=== PATIENT | male | born 1975 | race Caucasian/White ===

== ENCOUNTER 2017-10-08 11:13 | Inpatient (IN) ==
--- NOTE | 2017-10-08 11:50 | Emergency Department Note ---
Disposition Clinical Impression: Lacunar infarct, acute, Memory loss Disposition: Admitted As Inpatient Condition: Good Referrals: Salomón Garcia DO [Primary Care Provider] - Forms: ED Satisfaction Letter Time of Disposition: 15:52 General Adult HPI - General Chief complaint: ED Neuro Symptoms/Deficit Stated complaint: memory trouble Time Seen by Provider: 10/08/17 11:18 Source: patient Mode of arrival: ambulatory Limitations: no limitations Nursing Notes Reviewed: Yes Vital Signs Reviewed: Yes - History of Present Illness HPI Narrative: Patient is a 42 year old male that presents to the emergency department with memory loss. Patient states that he woke up with morning around 1000 and was unable to remember all of the events from yesterday. Patient states that he use to be a heavy drinker but has not had anything to drink in a couple of years. Patient states that his symptoms are similar to being "black out drunk". Patient states that he has a history of a TIA a couple of years ago but is unable to articulate what symptoms he had when he was having the TIA. Patient states that he was concerned that his memory loss could be related to having a TIA. Patient states that he has chronic pain from his [facility], [place] and is not having any new pain at this time. Pain Scale: 0 - Related Data Home Medications Medication Instructions Recorded Confirmed Aspirin [Lo-Dose Aspirin EC] 81 mg PO DAILY 02/16/17 03/06/17 HYDROcodone/Acet 10/325 mg [[place] 1 tab PO Q8H PRN 02/16/17 03/06/17 10-325 mg] Lidocaine 1 patch TP DAILY 02/16/17 03/06/17 Losartan Potassium [Cozaar] 50 mg PO DAILY 02/16/17 03/06/17 Metoprolol [Lopressor] 25 mg PO BID 02/16/17 03/06/17 Meloxicam [Meloxicam] 7.5 mg PO DAILY 10/08/17 10/08/17 Allergies Allergy/AdvReac Type Severity Reaction Status Date / Time No Known Allergies Allergy Verified 10/08/17 15:33 All systems ED: reviewed and negative except as stated. Eyes: Denies: vision change Musculoskeletal: Reports: other (Joint pain-chronic ) Neurological: Reports: other (Cannot remember ). Denies: headache, weakness, numbness, paresthesias Past Medical History - Past Medical History Medical history: Reports: other Surgical history: Reports: other Psychiatric history: Reports: anxiety - Social History Smoking Status: Never smoker Smokeless Tobacco Status: No Alcohol use: Reports: none Drug use: Reports: none Physical Exam - General Limitations: no limitations General appearance: alert, in no apparent distress - Head Head exam: atraumatic, normocephalic - Eye Eye exam: Present: normal appearance, EOMI - Neck Neck exam: Present: normal inspection, full ROM, trachea midline - Respiratory Respiratory exam: Present: normal lung sounds bilaterally. Absent: respiratory distress, wheezes - Cardiovascular Cardiovascular exam: Present: regular rate, normal rhythm, normal heart sounds, systolic murmur, +S1, +S2 - Abdominal Exam Abdominal exam: Present: soft, Non-Tender, normal bowel sounds - Neurological Exam Neurological exam: Present: alert, oriented X3, CN II-XII intact - Expanded Neurological Exam Patient oriented to: Present: person, place, time Speech: Present: fluid speech Cranial nerves: EOM function (II, III, IV, ): Normal, facial sensation (V): Normal, facial palsy (VII): Normal, gag reflex (IX): Normal, spinal accessory function (XI): Normal, tongue deviation (XII): Normal Cerebellar function: finger to nose: Normal, heel to vazquez: Normal Motor strength - LUE: 5/5 Motor strength - RUE: 5/5 Motor strength - LLE: 5/5 Motor strength - RLE: 5/5 Upper motor neuron exam: pronator drift: Absent bilaterally Sensory exam upper extremity: light touch: Normal Sensory exam lower extremity: light touch: Normal Coma Scale Eye Opening: Spontaneous Coma Scale Motor Response: Obeys Commands Coma Scale Verbal Response: Oriented Coma Scale Total: 15 - Psychiatric Psychiatric exam: Present: normal affect, normal mood - Skin Skin exam: Present: warm, dry, intact Course Vital Signs Temperature 98.0 F 10/08/17 11:16 Pulse Rate 81 10/08/17 11:16 Respiratory Rate 12 10/08/17 11:16 Blood Pressure 141/100 10/08/17 11:16 O2 Sat by Pulse Oximetry 95 10/08/17 11:16 Temperature 98.0 F 10/08/17 12:26 Pulse Rate 60 10/08/17 14:14 Respiratory Rate 18 10/08/17 14:14 Blood Pressure 152/106 10/08/17 14:14 O2 Sat by Pulse Oximetry 97 10/08/17 14:14 Oxygen Delivery Oxygen Delivery Room Air Medical Decision Making - MDM Narrative Medical decision making narrative: Due to the patient presenting to the with memory loss we will obtain laboratory testing, ct scan and an ekg. due to the patient having memory loss a history of valvular replacement without knowing if he has been on blood thinners we will obtain an MRI. CT scan showed encephalomalacia. MRI was obtained which showed an acute small lacunar infarct measuring 6 x 3 mm. Neurology was consult and and they recommended the patient received aspirin here in the emergency department. Patient will need to be admitted to the hospital for further evaluation and management. I called and spoke with Dr. Reed and she has accepted the patient to their service. The patient will be admitted to the hospital at this time for further evaluation and management. A consult was placed to neurology. - Lab Data Lab results reviewed: Yes I reviewed the patient's lab results. Result diagrams: 10/08/17 11:41 10/08/17 11:41 Lab Results 10/08/17 10/08/17 10/08/17 Range/Units 11:41 11:41 11:41 WBC 7.7 (4.3-11.1) K/mcL RBC 5.21 (4.19-5.50) M/mcL Hgb 15.6 (12.9-16.9) g/dL Hct 45.3 (37.5-50.1) % MCV 86.9 (83.0-100.0) fL MCH 29.9 (28.0-33.3) pg MCHC 34.4 (31.6-35.5) g/dL RDW 13.5 (11.5-14.5) % Plt Count 164 (140-400) K/mcL MPV 10.5 (9.4-12.4) fL Immature Gran % 0.5 (0-4) % Seg Neutrophils % 74.8 % Lymphocytes % 16.3 % Monocytes % 6.8 % Eosinophils % 0.7 % Basophils % 0.9 % Neutrophils # 5.7 (1.6-8.9) K/mcL Lymphocytes # 1.3 (0.6-4.6) K/mcL Monocytes # 0.5 (0.0-1.3) K/mcL Eosinophils # 0.1 (0.0-0.6) K/mcL Basophils # 0.1 (0.0-0.2) K/mcL PT 12.1 (9.4-12.1) Seconds INR 1.1 APTT 32.3 (26.0-36.0) Seconds Sodium 136 (136-145) mEq/L Potassium 3.8 (3.5-5.1) mEq/L Chloride 105 (98-107) mEq/L Carbon Dioxide 27 (23-29) mEq/L BUN 14 (6-20) mg/dL Creatinine 0.95 (0.70-1.30) mg/dL Est GFR ( Amer) > 60 (> 60) Est GFR (Non-Af Amer) > 60 (> 60) BUN/Creatinine Ratio 15 (6-26) Glucose 97 (70-105) mg/dL Calculated Osmolality 282 (280-300) Calcium 9.2 (8.6-10.3) mg/dL Total Bilirubin 1.1 H (0.3-1.0) mg/dL Direct Bilirubin 0.3 H (0.0-0.2) mg/dL Indirect Bilirubin 0.8 (0.0-1.2) mg/dL AST 15 (13-39) Units/L ALT 14 (7-52) Units/L Alkaline Phosphatase 73 (34-104) Units/L Serum Total Protein 6.5 (6.4-8.9) g/dL Albumin 4.2 (3.5-5.7) g/dL Globulin 2.3 L (2.4-3.5) g/dL Albumin/Globulin Ratio 1.8 (1.1-2.2) Urine Color (Yellow) Urine Clarity (Clear) Urine pH (5.0-8.0) pH Units Ur Specific [place] (1.010-1.025) Urine Protein (Neg-Trace) mg/dL Urine Glucose (UA) (Normal) mg/dL Urine Ketones (Negative) mg/dL Urine Blood (Negative) Urine Nitrite (Negative) Urine Bilirubin (Negative) Urine Urobilinogen (Normal) mg/dL Ur Leukocyte Esterase (Negative) Ur Culture Indicated? (NO) Urine Opiates Screen (Rzlvaw=507) ng/mL Ur Barbiturates Screen (Fvihvi=727) ng/mL Ur Phencyclidine Scrn (Cutoff=25) ng/mL Ur Amphetamines Screen (Mdyali=0617) ng/mL U Benzodiazepines Scrn (Wnxovo=927) ng/mL Urine Cocaine Screen (Cutoff= 300) ng/mL U Marijuana (THC) Screen (Cutoff = 50) ng/mL Ur Drug Screen Interp Ethyl Alcohol < 10 (Less than 10) mg/dL 10/08/17 10/08/17 Range/Units 11:47 11:47 WBC (4.3-11.1) K/mcL RBC (4.19-5.50) M/mcL Hgb (12.9-16.9) g/dL Hct (37.5-50.1) % MCV (83.0-100.0) fL MCH (28.0-33.3) pg MCHC (31.6-35.5) g/dL RDW (11.5-14.5) % Plt Count (140-400) K/mcL MPV (9.4-12.4) fL Immature Gran % (0-4) % Seg Neutrophils % % Lymphocytes % % Monocytes % % Eosinophils % % Basophils % % Neutrophils # (1.6-8.9) K/mcL Lymphocytes # (0.6-4.6) K/mcL Monocytes # (0.0-1.3) K/mcL Eosinophils # (0.0-0.6) K/mcL Basophils # (0.0-0.2) K/mcL PT (9.4-12.1) Seconds INR APTT (26.0-36.0) Seconds Sodium (136-145) mEq/L Potassium (3.5-5.1) mEq/L Chloride (98-107) mEq/L Carbon Dioxide (23-29) mEq/L BUN (6-20) mg/dL Creatinine (0.70-1.30) mg/dL Est GFR ( Amer) (> 60) Est GFR (Non-Af Amer) (> 60) BUN/Creatinine Ratio (6-26) Glucose (70-105) mg/dL Calculated Osmolality (280-300) Calcium (8.6-10.3) mg/dL Total Bilirubin (0.3-1.0) mg/dL Direct Bilirubin (0.0-0.2) mg/dL Indirect Bilirubin (0.0-1.2) mg/dL AST (13-39) Units/L ALT (7-52) Units/L Alkaline Phosphatase (34-104) Units/L Serum Total Protein (6.4-8.9) g/dL Albumin (3.5-5.7) g/dL Globulin (2.4-3.5) g/dL Albumin/Globulin Ratio (1.1-2.2) Urine Color Yellow (Yellow) Urine Clarity Clear (Clear) Urine pH 6.5 (5.0-8.0) pH Units Ur Specific [place] 1.012 (1.010-1.025) Urine Protein Negative (Neg-Trace) mg/dL Urine Glucose (UA) Normal (Normal) mg/dL Urine Ketones Negative (Negative) mg/dL Urine Blood Negative (Negative) Urine Nitrite Negative (Negative) Urine Bilirubin Negative (Negative) Urine Urobilinogen Normal (Normal) mg/dL Ur Leukocyte Esterase Negative (Negative) Ur Culture Indicated? NO (NO) Urine Opiates Screen Positive H (Jlezrf=990) ng/mL Ur Barbiturates Screen Negative (Ucnxhh=686) ng/mL Ur Phencyclidine Scrn Negative (Cutoff=25) ng/mL Ur Amphetamines Screen Negative (Fsptzx=0177) ng/mL U Benzodiazepines Scrn Negative (Sgfgzz=891) ng/mL Urine Cocaine Screen Negative (Cutoff= 300) ng/mL U Marijuana (THC) Screen Negative (Cutoff = 50) ng/mL Ur Drug Screen Interp See Below Ethyl Alcohol (Less than 10) mg/dL - Radiology Data Radiology results reviewed: Yes I reviewed the patient's radiology results. Chest X-Ray 10/08/17 11:31 IMPRESSION: Stable chest x-ray with cardiomegaly, postthoracotomy changes and hiatal hernia. No CHF or pneumonia seen. D/ / 10/08/2017 12:13:23 Sruthi Murillo MD / Jessica Gomez Interpreting Provider: Sruthi Murillo MD Head CT 10/08/17 11:32 IMPRESSION: No acute intracranial abnormality. Evidence for a small old infarct in the right frontotemporal region. D/ / Gatito Webb MD / Gatito Webb MD Interpreting Provider: Gatito Webb MD Brain MRI 10/08/17 12:47 IMPRESSION: 1. Acute left cerebellar lacunar infarction measuring 6 x 3 mm. No associated hemorrhage. 2. 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 The findings were sent to the Radiology Results Communication Center at 2:20 pm on 10/08/2017to be communicated to a licensed caregiver. D/ : / 10/08/2017 14:22:17 Dm Ocampo MD / bcarter Interpreting Provider: Dm Ocampo MD - EKG Data EKG #1 EKG attestation: Yes I reviewed and interpreted this EKG. EKG results narrative: ekg shows sinus rhythm at a rate of 69 BPM pr interval 169, qrs duration 96 QTc 395 with a normal axis. No STEMI noted on EKG. This was compared to previous on 04/14/17 which showed sinus rhythm at a rate of 77. NIH Stroke Scale - Level of Consciousness LOC: Alert - LOC Questions LOC Questions: Answers both correctly - LOC Commands LOC Commands: Performs both correctly - Best Gaze Best Gaze: Normal - Visual Visual: No visual loss - Facial Palsy Facial Palsy: Normal - Motor Arms Motor Arm-Left: No drift for 10 seconds Motor Arm-Right: No drift for 10 seconds - Motor Legs Motor Leg-Left: No drift for 5 seconds Motor Leg-Right: No drift for 5 seconds - Limb Ataxia Limb Ataxia: Absent of affected limb too weak to perform exam - Sensory Sensory: Normal - Best Language Best Language: No aphasia - Dysarthria Dysarthria: Normal - Extinction and Inattention Extinction and Inattention: Normal - NIHSS Total Score NIHSS Total Score: 0
[2017-10-08 11:54] LABS: Basophils # 0.1 K/mcL (0.0-0.2); Basophils % 0.9 %; Eosinophils # 0.1 K/mcL (0.0-0.6); Eosinophils % 0.7 %; Hematocrit 45.3 % (37.5-50.1); Hemoglobin 15.6 g/dL (12.9-16.9); Immature Granulocytes % 0.5 % (0-4); Lymphocytes # 1.3 K/mcL (0.6-4.6); Lymphocytes % 16.3 %; Mean Corpuscular HGB Conc 34.4 g/dL (31.6-35.5); Mean Corpuscular Hemoglobin 29.9 pg (28.0-33.3); Mean Corpuscular Volume 86.9 fL (83.0-100.0); Mean Platelet Volume 10.5 fL (9.4-12.4); Monocytes # 0.5 K/mcL (0.0-1.3); Monocytes % 6.8 %; Neutrophils # 5.7 K/mcL (1.6-8.9); Platelet Count 164 K/mcL (140-400); Red Blood Count 5.21 M/mcL (4.19-5.50); Red Cell Distribution Width 13.5 % (11.5-14.5); Segmented Neutrophils % 74.8 %
[2017-10-08 11:57] LABS: Bilirubin,Urine Negative (Negative); Blood,Urine Negative (Negative); Clarity,Urine Clear (Clear); Color,Urine Yellow (Yellow); Glucose,Urine (UA) Normal (Normal); Ketones,Urine Negative (Negative); Leukocyte Esterase,Urine Negative (Negative); Nitrite,Urine Negative (Negative); PH,Urine 6.5 pH Units (5.0-8.0); Protein,Urine Negative (Neg-Trace); Specific Gravity,Urine 1.012 (1.010-1.025); Urobilinogen,Urine Normal (Normal)
[2017-10-08 11:58] LABS: INR 1.1; Prothrombin Time 12.1 Seconds (9.4-12.1)
[2017-10-08 12:00] LABS: Activated Partial Thrombo Time 32.3 Seconds (26.0-36.0)
[2017-10-08 12:13] LABS: Alanine Aminotransferase 14 Units/L (7-52); Albumin 4.2 g/dL (3.5-5.7); Albumin/Globulin Ratio 1.8 (1.1-2.2); Alkaline Phosphatase 73 Units/L (34-104); Aspartate Amino Transferase 15 Units/L (13-39); BUN/Creatinine Ratio 15 (6-26); Bilirubin,Direct 0.3 mg/dL (0.0-0.2); Bilirubin,Indirect 0.8 mg/dL (0.0-1.2); Bilirubin,Total 1.1 mg/dL (0.3-1.0); Blood Urea Nitrogen 14 mg/dL (6-20); Calcium 9.2 mg/dL (8.6-10.3); Carbon Dioxide 27 mEq/L (23-29); Chloride 105 mEq/L (98-107); Ethanol < 10 mg/dL (Less than 10); Globulin 2.3 g/dL (2.4-3.5); Glucose 97 mg/dL (70-105); Osmolality,Calculated 282 (280-300); Potassium 3.8 mEq/L (3.5-5.1); Sodium 136 mEq/L (136-145); Total Protein 6.5 g/dL (6.4-8.9); eGFR For African Americans > 60 (> 60); eGFR For Non-African Americans > 60 (> 60)
--- NOTE | 2017-10-08 12:18 | Emergency Department Note ---
Disposition Clinical Impression: Lacunar infarct, acute, Memory loss Disposition: Admitted As Inpatient Condition: Good General Adult HPI - General Chief complaint: ED Neuro Symptoms/Deficit Stated complaint: memory trouble Time Seen by Provider: 10/08/17 11:18 Source: patient Mode of arrival: ambulatory Limitations: no limitations - History of Present Illness Pain Scale: 0 - Related Data Home Medications Medication Instructions Recorded Confirmed Aspirin [Lo-Dose Aspirin EC] 81 mg PO DAILY 02/16/17 10/08/17 HYDROcodone/Acet 10/325 mg [[place] 1 tab PO Q8H PRN 02/16/17 10/08/17 10-325 mg] Lidocaine 1 patch TP DAILY 02/16/17 10/08/17 Losartan Potassium [Cozaar] 50 mg PO DAILY 02/16/17 10/08/17 Metoprolol [Lopressor] 25 mg PO BID 02/16/17 10/08/17 Meloxicam [Meloxicam] 7.5 mg PO DAILY 10/08/17 10/08/17 Allergies Allergy/AdvReac Type Severity Reaction Status Date / Time No Known Allergies Allergy Verified 10/08/17 15:33 Eyes: Denies: vision change Musculoskeletal: Reports: other (Joint pain-chronic ) Neurological: Reports: other (Cannot remember ). Denies: headache, weakness, numbness, paresthesias Past Medical History - Past Medical History Medical history: Reports: other Surgical history: Reports: other Psychiatric history: Reports: anxiety - Social History Smoking Status: Never smoker Smokeless Tobacco Status: No Alcohol use: Reports: none Drug use: Reports: none Physical Exam - General Limitations: no limitations General appearance: alert, in no apparent distress Course Vital Signs Temperature 98.0 F 10/08/17 11:16 Pulse Rate 81 10/08/17 11:16 Respiratory Rate 12 10/08/17 11:16 Blood Pressure 141/100 10/08/17 11:16 O2 Sat by Pulse Oximetry 95 10/08/17 11:16 Temperature 98.0 F 10/08/17 16:43 Pulse Rate 74 10/08/17 16:43 Respiratory Rate 14 10/08/17 16:43 Blood Pressure 140/99 10/08/17 16:43 O2 Sat by Pulse Oximetry 92 10/08/17 16:43 Oxygen Delivery Oxygen Delivery Room Air Medical Decision Making - Lab Data Result diagrams: 10/08/17 11:41 10/08/17 11:41 Lab Results 10/08/17 10/08/17 10/08/17 Range/Units 11:41 11:41 11:41 WBC 7.7 (4.3-11.1) K/mcL RBC 5.21 (4.19-5.50) M/mcL Hgb 15.6 (12.9-16.9) g/dL Hct 45.3 (37.5-50.1) % MCV 86.9 (83.0-100.0) fL MCH 29.9 (28.0-33.3) pg MCHC 34.4 (31.6-35.5) g/dL RDW 13.5 (11.5-14.5) % Plt Count 164 (140-400) K/mcL MPV 10.5 (9.4-12.4) fL Immature Gran % 0.5 (0-4) % Seg Neutrophils % 74.8 % Lymphocytes % 16.3 % Monocytes % 6.8 % Eosinophils % 0.7 % Basophils % 0.9 % Neutrophils # 5.7 (1.6-8.9) K/mcL Lymphocytes # 1.3 (0.6-4.6) K/mcL Monocytes # 0.5 (0.0-1.3) K/mcL Eosinophils # 0.1 (0.0-0.6) K/mcL Basophils # 0.1 (0.0-0.2) K/mcL PT 12.1 (9.4-12.1) Seconds INR 1.1 APTT 32.3 (26.0-36.0) Seconds Sodium 136 (136-145) mEq/L Potassium 3.8 (3.5-5.1) mEq/L Chloride 105 (98-107) mEq/L Carbon Dioxide 27 (23-29) mEq/L BUN 14 (6-20) mg/dL Creatinine 0.95 (0.70-1.30) mg/dL Est GFR ( Amer) > 60 (> 60) Est GFR (Non-Af Amer) > 60 (> 60) BUN/Creatinine Ratio 15 (6-26) Glucose 97 (70-105) mg/dL Calculated Osmolality 282 (280-300) Calcium 9.2 (8.6-10.3) mg/dL Total Bilirubin 1.1 H (0.3-1.0) mg/dL Direct Bilirubin 0.3 H (0.0-0.2) mg/dL Indirect Bilirubin 0.8 (0.0-1.2) mg/dL AST 15 (13-39) Units/L ALT 14 (7-52) Units/L Alkaline Phosphatase 73 (34-104) Units/L Serum Total Protein 6.5 (6.4-8.9) g/dL Albumin 4.2 (3.5-5.7) g/dL Globulin 2.3 L (2.4-3.5) g/dL Albumin/Globulin Ratio 1.8 (1.1-2.2) Urine Color (Yellow) Urine Clarity (Clear) Urine pH (5.0-8.0) pH Units Ur Specific [place] (1.010-1.025) Urine Protein (Neg-Trace) mg/dL Urine Glucose (UA) (Normal) mg/dL Urine Ketones (Negative) mg/dL Urine Blood (Negative) Urine Nitrite (Negative) Urine Bilirubin (Negative) Urine Urobilinogen (Normal) mg/dL Ur Leukocyte Esterase (Negative) Ur Culture Indicated? (NO) Urine Opiates Screen (Oaywhy=182) ng/mL Ur Barbiturates Screen (Xhsobl=853) ng/mL Ur Phencyclidine Scrn (Cutoff=25) ng/mL Ur Amphetamines Screen (Yeiffh=4376) ng/mL U Benzodiazepines Scrn (Yujwdd=417) ng/mL Urine Cocaine Screen (Cutoff= 300) ng/mL U Marijuana (THC) Screen (Cutoff = 50) ng/mL Ur Drug Screen Interp Ethyl Alcohol < 10 (Less than 10) mg/dL 10/08/17 10/08/17 Range/Units 11:47 11:47 WBC (4.3-11.1) K/mcL RBC (4.19-5.50) M/mcL Hgb (12.9-16.9) g/dL Hct (37.5-50.1) % MCV (83.0-100.0) fL MCH (28.0-33.3) pg MCHC (31.6-35.5) g/dL RDW (11.5-14.5) % Plt Count (140-400) K/mcL MPV (9.4-12.4) fL Immature Gran % (0-4) % Seg Neutrophils % % Lymphocytes % % Monocytes % % Eosinophils % % Basophils % % Neutrophils # (1.6-8.9) K/mcL Lymphocytes # (0.6-4.6) K/mcL Monocytes # (0.0-1.3) K/mcL Eosinophils # (0.0-0.6) K/mcL Basophils # (0.0-0.2) K/mcL PT (9.4-12.1) Seconds INR APTT (26.0-36.0) Seconds Sodium (136-145) mEq/L Potassium (3.5-5.1) mEq/L Chloride (98-107) mEq/L Carbon Dioxide (23-29) mEq/L BUN (6-20) mg/dL Creatinine (0.70-1.30) mg/dL Est GFR ( Amer) (> 60) Est GFR (Non-Af Amer) (> 60) BUN/Creatinine Ratio (6-26) Glucose (70-105) mg/dL Calculated Osmolality (280-300) Calcium (8.6-10.3) mg/dL Total Bilirubin (0.3-1.0) mg/dL Direct Bilirubin (0.0-0.2) mg/dL Indirect Bilirubin (0.0-1.2) mg/dL AST (13-39) Units/L ALT (7-52) Units/L Alkaline Phosphatase (34-104) Units/L Serum Total Protein (6.4-8.9) g/dL Albumin (3.5-5.7) g/dL Globulin (2.4-3.5) g/dL Albumin/Globulin Ratio (1.1-2.2) Urine Color Yellow (Yellow) Urine Clarity Clear (Clear) Urine pH 6.5 (5.0-8.0) pH Units Ur Specific [place] 1.012 (1.010-1.025) Urine Protein Negative (Neg-Trace) mg/dL Urine Glucose (UA) Normal (Normal) mg/dL Urine Ketones Negative (Negative) mg/dL Urine Blood Negative (Negative) Urine Nitrite Negative (Negative) Urine Bilirubin Negative (Negative) Urine Urobilinogen Normal (Normal) mg/dL Ur Leukocyte Esterase Negative (Negative) Ur Culture Indicated? NO (NO) Urine Opiates Screen Positive H (Btvzwk=636) ng/mL Ur Barbiturates Screen Negative (Wnxouw=215) ng/mL Ur Phencyclidine Scrn Negative (Cutoff=25) ng/mL Ur Amphetamines Screen Negative (Dpaiia=1263) ng/mL U Benzodiazepines Scrn Negative (Vxwnau=362) ng/mL Urine Cocaine Screen Negative (Cutoff= 300) ng/mL U Marijuana (THC) Screen Negative (Cutoff = 50) ng/mL Ur Drug Screen Interp See Below Ethyl Alcohol (Less than 10) mg/dL Attestation Statement - Attestation Attestation: I examined this patient and my medical decision-making was reviewed with the Resident Physician. I agree with the documented findings, disposition and treatment plan as described except to the extent set forth below. Patient presents to the ED with chief complaint of memory loss. Patient states everything from yesterday is fuzzy. He knows he went to his friend's house complaint severe grams with his friend's kids. He does not remember any details. He states he remembers everything from waking up today until this point. He remembers everything before yesterday. Denies any headache. Denies any other neurologic symptoms. On examination he is awake alert and oriented 3. NIH 0. Plan. CT head basic labs cardiac workup. Patient with acute lacunar infarct on MRI. Discussed with neurology who recommends admission for further workup. Only recommends aspirin at this time. Chest X-Ray 10/08/17 11:31 IMPRESSION: Stable chest x-ray with cardiomegaly, postthoracotomy changes and hiatal hernia. No CHF or pneumonia seen. D/ / 10/08/2017 12:13:23 Sruthi Murillo MD / Jessica Gomez Interpreting Provider: Sruthi Murillo MD Head CT 10/08/17 11:32 IMPRESSION: No acute intracranial abnormality. Evidence for a small old infarct in the right frontotemporal region. D/ / Gatito Webb MD / Gatito Webb MD Interpreting Provider: Gatito Webb MD Brain MRI 10/08/17 12:47 IMPRESSION: 1. Acute left cerebellar lacunar infarction measuring 6 x 3 mm. No associated hemorrhage. 2. 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 The findings were sent to the Radiology Results Communication Center at 2:20 pm on 10/08/2017to be communicated to a licensed caregiver. D/ / 10/08/2017 14:22:17 Dm Ocampo MD / chen Interpreting Provider: Dm Ocampo MD
[2017-10-08] MEDS ORDERED: 0.9 % Sodium Chloride 1,000 ML IVC ONE (12:51)
[2017-10-08 13:09] LABS: Amphetamine Screen,Urine Negative ng/mL (Cutoff=1000); Barbiturate Screen,Urine Negative ng/mL (Cutoff=200); Benzodiazepines Screen,Urine Negative ng/mL (Cutoff=200); Cannabinoid Screen,Urine Negative ng/mL (Cutoff = 50); Cocaine Screen,Urine Negative ng/mL (Cutoff= 300); Opiate Screen,Urine Positive ng/mL (Cutoff=300); Phencyclidine Screen,Urine Negative ng/mL (Cutoff=25)
[2017-10-08] MEDS ORDERED: Aspirin 325 MG TABLET PO ONE (15:12)
[2017-10-08] MEDS ORDERED: Naloxone 0.4 MG/ML INJ IVP PRN (16:36)
--- NOTE | 2017-10-08 16:39 | Internal Med History&Physical ---
Date of Encounter: 10/08/17 Time of Encounter: 17:07 Internal Medicine - H&P: HPI Chief complaint: Memory loss Admitted From: Home Plans for Post Hospital Care: Home History of present illness: Mr. 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 He reports being in his usual state of health till early this morning, when he woke up and could not remember his entire day events from yesterday, he denies prior hx of memory problems He denies speech deficits, motor deficits, numbness, facial droop. He denies any urinary, GI or chest symptoms The patient reports he was on Xarelto till 2 months ago when it was discontinued by his physician. He is not on any blood thinners at home and takes baby ASA occasionally. At time of review, he was able to remember some parts of his day from yesterday' s events he has never smoked, denied alcohol use, denies illicit drug use He has no drug allergies Work up in the ER showed normal CBC and Chem, acute lacunar cerebellar infarct. Utox positive for opiates-prescribed Brain MRI also shows Right frontal prcular encephalomalcia and glisos compatible with prior infarction or injury Past Med Surg Social Fam HX - Past Medical History Medical history: other (miriam gomes) Additional medical history: balta myles Psychiatric history: anxiety - Past Surgical History Surgical History: other Additional surgical history: foot surgery, eye correction x5, B knee scopes, bhavani fundoplication, - Social History Smoking Status: Never smoker Smokeless Tobacco Status: No Alcohol use: none Drug use: none Internal Medicine - H&P: Meds Aspirin [Lo-Dose Aspirin EC] 81 mg PO DAILY 02/16/17 [History] HYDROcodone/Acet 10/325 mg [[place] 10-325 mg] 1 tab PO Q8H PRN 02/16/17 [History] Lidocaine 1 patch TP DAILY 02/16/17 [History] Losartan Potassium [Cozaar] 50 mg PO DAILY 02/16/17 [History] Metoprolol [Lopressor] 25 mg PO BID 02/16/17 [History] Meloxicam [Meloxicam] 7.5 mg PO DAILY 10/08/17 [History] 3 Allergy/AdvReac Type Severity Reaction Status Date / Time No Known Allergies Allergy Verified 10/08/17 15:33 All Systems PM: A 10-system review of systems was performed and is negative for pertinent findings except as documented above in the HPI. - Constitutional Constitutional: as per HPI - EENT Eyes: as per HPI Ears: as per HPI Nose, mouth and throat: as per HPI - Cardiovascular Cardiovascular ROS IM: as per HPI - Respiratory Respiratory: as per HPI - Gastrointestinal Gastrointestinal: as per HPI - Musculoskeletal Musculoskeletal ROS IM: as per HPI - Integumentary Integumentary IM: as per HPI - Neurological Neurological ROS: as per HPI - Hematologic/Lymphatic Hematologic/Lymphatic: as per HPI - Constitutional Vitals: Temp Pulse Resp BP Pulse Ox 98.0 F 60 18 173/116 97 10/08/17 12:26 10/08/17 14:14 10/08/17 16:14 10/08/17 16:14 10/08/17 14:14 - Head Head exam: Present: atraumatic, normocephalic - Eye Eye exam: Present: PERRL, conjuntiva pink, sclera anicteric Pupils: Present: PERRL - Neck Neck exam general surgery: Present: supple, trachea midline. Absent: lymphadenopathy - Respiratory Respiratory exam: Present: CTAB. Absent: accessory muscle use, rales, rhonchi, wheezes - Cardiovascular Cardiovascular exam: Present: RRR, +S1, +S2, systolic murmur. Absent: diastolic murmur, gallop, rubs - GI/Abdominal GI/Abdominal exam: Present: normal bowel sounds, soft, no peritoneal signs. Absent: distended, tenderness - Extremities Exam Extremities exam: Present: warm, radial pulses palpable and symmetrical. Absent : calf tenderness, cyanotic, pedal edema - Neurological Exam Neurological exam: Present: CN II-XII intact, oriented X3, no focal deficits. Absent: pronater drift, facial droop, speech deficit - Skin Skin exam: Present: dry, intact Internal Med - H&P Results - Labs CBC & Chem 7: 10/08/17 11:41 10/08/17 11:41 - Assessment and plan (1) Cerebellar infarct Current Visit: Yes Status: Acute Assessment and plan: Continue tele NO speech, motor or sensory deficits Patient with acute memory loss, now improving Continue ASA Add lipitor Obtain ECHO and Carotid doppler Check lipid panel a.m Neuro consult-called by ED No indication for spec/occupational/physical therapy, patient s ambulatory and has no deficits (2) History of heart valve repair Current Visit: Yes Status: Chronic Assessment and plan: Hx of MV, AV and aortic root repair, not on anticoagulation Continue ASA Follow ECHO (3) Memory loss Current Visit: Yes Status: Acute Assessment and plan: as above (4) Umer-Danlos syndrome Current Visit: Yes Status: Chronic Assessment and plan: continue home meds and pain control (5) Facet arthritis of lumbar region Current Visit: Yes Status: Chronic Assessment and plan: continue home meds - Time Spent With Patient Total time spent is greater than 50% in coordination of care (as documented) at patient's floor/unit and/or counseling patient:
[2017-10-08] MEDS: *HR* HYDROcodone/Acet 10/325 mg TABLET PO PRN (21:00)
[2017-10-09 04:39] LABS: Basophils # 0.1 K/mcL (0.0-0.2); Basophils % 0.9 %; Eosinophils # 0.1 K/mcL (0.0-0.6); Eosinophils % 1.6 %; Hematocrit 45.7 % (37.5-50.1); Hemoglobin 15.5 g/dL (12.9-16.9); Immature Granulocytes % 0.6 % (0-4); Lymphocytes # 2.6 K/mcL (0.6-4.6); Lymphocytes % 30.5 %; Mean Corpuscular HGB Conc 33.9 g/dL (31.6-35.5); Mean Corpuscular Hemoglobin 30.5 pg (28.0-33.3); Mean Corpuscular Volume 89.8 fL (83.0-100.0); Mean Platelet Volume 11.3 fL (9.4-12.4); Monocytes # 0.7 K/mcL (0.0-1.3); Monocytes % 7.7 %; Platelet Count 160 K/mcL (140-400); Red Blood Count 5.09 M/mcL (4.19-5.50); Red Cell Distribution Width 13.6 % (11.5-14.5); Segmented Neutrophils % 58.7 %
[2017-10-09 04:58] LABS: Alanine Aminotransferase 12 Units/L (7-52); Albumin 3.8 g/dL (3.5-5.7); Alkaline Phosphatase 73 Units/L (34-104); Aspartate Amino Transferase 13 Units/L (13-39); BUN/Creatinine Ratio 18 (6-26); Bilirubin,Total 0.6 mg/dL (0.3-1.0); Blood Urea Nitrogen 20 mg/dL (6-20); Carbon Dioxide 28 mEq/L (23-29); Chloride 104 mEq/L (98-107); Globulin 1.9 g/dL (2.4-3.5); Glucose 112 mg/dL (70-105); Osmolality,Calculated 287 (280-300); Potassium 4.2 mEq/L (3.5-5.1); Sodium 137 mEq/L (136-145); Total Protein 5.7 g/dL (6.4-8.9); eGFR For African Americans > 60 (> 60); eGFR For Non-African Americans > 60 (> 60)
[2017-10-09 05:06] LABS: Chol/HDL Ratio 4.4 (0-4.9); Cholesterol 136 mg/dL (< 200); HDL Cholesterol 31 mg/dL (40-59); LDL Cholesterol,Calculated 67 mg/dL (0-99); Triglycerides 190 mg/dL (< 150)
[2017-10-09] MEDS: *HR* HYDROcodone/Acet 10/325 mg TABLET PO PRN (05:32)
[2017-10-09] MEDS ORDERED: *HR* Enoxaparin 40 MG/0.4 ML SYRINGE SQ SCH (06:00)
[2017-10-09] MEDS ORDERED: Aspirin Enteric Coated 81 MG Tablet PO SCH (09:00)
[2017-10-09 11:03] VITALS: BP 151/99
--- NOTE | 2017-10-09 11:22 | Neurology - Consult Note ---
<Dougie Mendoza - Last Filed: 10/09/17 11:16> Date of Encounter: 10/09/17 Time of Encounter: 11:16 Assessment and Plan (1) Cerebellar infarct Current Visit: Yes Status: Acute Head MRI did reveal acute left lacunar infarct of the cerebellum. Patient will need evaluation for cause, including: echocardiogram, carotid US, and lab work for thrombotic tendencies. Ordered testing for factor V Leiden, prothrombin gene mutation, protein C, protein S, antithrombin III, antiphospholipid antibody , homocysteine, B12, folate, TSH, rheumatoid factor. Follow up with outpatient neurology for results and further discussion. History of Present Illness Chief complaint: memory loss HPI: Mr. Chavarria is a 42 year old male with history of Umer-Danlos, mitral and aortic valve repairs. Patient woke up yesterday morning felt as though he cannot remember the previous day's events, and presented with concern for the loss of memory. He does not have a history of memory loss. Patient denied any focal motor or sensory deficits. Does not have history of stroke or TIA. Takes 81 mg aspirin at home. Postoperative Xarelto after varicose vein procedure was discontinued 2 months ago. Patient has regained some of the lost memory, but still feels as though gaps of time Are Missing. Patient continues to deny focal neurologic deficit and is ambulating well. Patient feels as though he is at baseline. Past Med Surg Social Fam HX - Past Medical History Medical history: other Additional medical history: ehler danlos Psychiatric history: anxiety - Past Surgical History Surgical History: other Additional surgical history: foot surgery, eye correction x5, B knee scopes, bhavani fundoplication, - Social History Smoking Status: Never smoker Smokeless Tobacco Status: No Alcohol use: none Drug use: none Medications and Allergies Aspirin [Lo-Dose Aspirin EC] 81 mg PO DAILY 02/16/17 [History] HYDROcodone/Acet 10/325 mg [[place] 10-325 mg] 1 tab PO Q8H PRN 02/16/17 [History] Lidocaine 1 patch TP DAILY 02/16/17 [History] Losartan Potassium [Cozaar] 50 mg PO DAILY 02/16/17 [History] Metoprolol [Lopressor] 25 mg PO BID 02/16/17 [History] Meloxicam [Meloxicam] 7.5 mg PO DAILY 10/08/17 [History] Aspirin Enteric Coated [Aspirin EC] 325 mg PO DAILY #30 tablet. 10/09/17 [Rx] Atorvastatin [Lipitor] 40 mg PO HS #30 tablet 10/09/17 [Rx] Clopidogrel [Plavix] 75 mg PO DAILY #30 tablet 10/09/17 [Rx] 3 Allergy/AdvReac Type Severity Reaction Status Date / Time No Known Allergies Allergy Verified 10/08/17 15:33 All Systems: The remainder of the systems were reviewed and are negative Review of Systems: Recent memory loss. Physical Examination - Vital Signs Vital Signs: Initial Vital Signs Temp Pulse Resp BP Pulse Ox 98.0 F 81 12 141/100 95 10/08/17 11:16 10/08/17 11:16 10/08/17 11:16 10/08/17 11:16 10/08/17 11:16 - Exam Exam: Mental status: Patient is awake, alert and oriented to person, place, and time. Speech is appropriate and fluent. Adequate fund of knowledge. Cranial nerves: CN II-XII grossly intact bilateral, CHRIS, EOM intact, no facial asymmetry. Upper extremity motor: normal strength, bulk and 5/5 strength throughout bilateral deltoid, bicep, tricep, finger extensors and abductors. Lower extremity motor: normal strength, bulk and 5/5 strength throughout bilateral hip flexors, quadriceps, hamstring, plantar flexors and extensors. Sensory: Sensation to light touch and pain intact. Cerebellar: Able to perform finger to nose and rapid alternating movement tests appropriately without evidence of dysmetria or akinesia. No truncal instability. Reflexes: 2+ reflexes throughout bicep, tricep, achilles, patellar. Down going plantar reflex. Gait: Patient is observed walking without instability, gait is somewhat altered due to apparent foot deformities. Results - Laboratory Findings CBC and BMP: 10/09/17 03:29 10/09/17 03:29 Abnormal lab findings: Abnormal lab results Glucose 112 mg/dL (70-105) H 10/09/17 03:29 Direct Bilirubin 0.3 mg/dL (0.0-0.2) H 10/08/17 11:41 Serum Total Protein 5.7 g/dL (6.4-8.9) L 10/09/17 03:29 Globulin 1.9 g/dL (2.4-3.5) L 10/09/17 03:29 Triglycerides 190 mg/dL (< 150) H 10/09/17 03:29 VLDL Cholesterol, Calc 38 mg/dL (< 31) H 10/09/17 03:29 HDL Cholesterol 31 mg/dL (40-59) L 10/09/17 03:29 Urine Opiates Screen Positive ng/mL (Sbcqos=387) H 10/08/17 11:47 Consult Discharge Plan - Plan Referrals: Salomón Garcia DO [Primary Care Provider] - Prescriptions: Aspirin Enteric Coated [Aspirin EC] 325 mg PO DAILY #30 tablet. Atorvastatin [Lipitor] 40 mg PO HS #30 tablet Clopidogrel [Plavix] 75 mg PO DAILY #30 tablet <Alex Ludwig I - Last Filed: 10/09/17 11:41> Date of Encounter: 10/09/17 Assessment and Plan (1) Cerebellar infarct Current Visit: Yes Status: Acute Pt was seen and examined, my medical decision was reviewed with the Resident Physician, I agree with the documented findings, disposition and treatment plas as described except to the extent set forth below This is a 42 years old male with a history of Ehler Danlos syndrome, admitted with the predominantly short-term memory issues sounded more like an amnesia for several hours that resolved spontaneously he was admitted for the workup and during the workup he was found to have a lacunar cerebellar infarct. 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 Motor examination 5/5 all 4 extremities sensory and cerebellar testing is also within normal limits is no evidence of dysmetria or any other abnormalities to be suggestive of cerebellar infarct predominantly he is asymptomatic. Acute left lacunar cerebellar infarct Plan: Following's are my recommendations. Patients with the Umer-Danlos syndrome have an increased risk of vascular complications such as aortic dissection and perforation as far as Cerebral ischemia has only rarely been documented, and they are only rare cases reported I suspect it could be related to it but at the same time because of younger age I would recommend, thrombotic tendency profile For secondary stroke prevention patient should continue daily antiplatelet medication and vascular risk factor modification. Order the following test, *MRI of the brain without contrast. *Antiplatelet medication, aspirin 325 mg daily. *Consult physical therapy/ rehabilitation * To reduce the risk of future ischemic stroke patient need continued vascular risk modification, following's are the recommended guidelines LDL goal less than 70 MG per deciliter Smoking cessation reinforced. Diabetes management Blood pressure control should achieve less than 130/80 mmHg BP management should aim to achieve long-term control in a reasonable amount of time. weight management goal for BMI is 18.5 -24.9 Kg/m2 Alcohol : No more than 2 drinks per day for men Patient to continue to follow-up with his primary care physician for continued outpatient risk factor management and modification. If echo and carotid's are negative patient could be discharged to home with follow-up with neurology in 3-4 weeks as thrombotic tendency profile may take several weeks to be back Alex Ludwig MD History of Present Illness HPI: Mr. Chavarria is a 42 year old male All Systems: The remainder of the systems were reviewed and are negative Physical Examination - Vital Signs Vital Signs: Initial Vital Signs Temp Pulse Resp BP Pulse Ox 98.0 F 81 12 141/100 95 10/08/17 11:16 10/08/17 11:16 10/08/17 11:16 10/08/17 11:16 10/08/17 11:16 Results - Laboratory Findings CBC and BMP: 10/09/17 03:29 10/09/17 03:29 Abnormal lab findings: Abnormal lab results Glucose 112 mg/dL (70-105) H 10/09/17 03:29 Direct Bilirubin 0.3 mg/dL (0.0-0.2) H 10/08/17 11:41 Serum Total Protein 5.7 g/dL (6.4-8.9) L 10/09/17 03:29 Globulin 1.9 g/dL (2.4-3.5) L 10/09/17 03:29 Triglycerides 190 mg/dL (< 150) H 10/09/17 03:29 VLDL Cholesterol, Calc 38 mg/dL (< 31) H 10/09/17 03:29 HDL Cholesterol 31 mg/dL (40-59) L 10/09/17 03:29 Urine Opiates Screen Positive ng/mL (Wkylez=058) H 10/08/17 11:47
[2017-10-09 12:04] LABS: Prothrombin Time 11.3 Seconds (9.4-12.1)
[2017-10-09 12:45] LABS: Folate 6.5 ng/mL (3.0-16.0); Vitamin B12 204 pg/mL (250-1100)
[2017-10-09 13:27] LABS: Rheumatoid Factor < 10 IU/mL (Less than 14)
--- NOTE | 2017-10-09 13:32 | Discharge Summary ---
<Gatito Ruiz - Last Filed: 10/09/17 16:01> Orders not resulted at time of discharge: Pending orders 10/09/17 11:18 Factor V Leiden Routine Protein C, Functional Routine Protein S, Free Routine Protein S, Functional Routine Prothrombin [id number] Mutation Routine Von Willebrand Factor Ag Routine 10/09/17 11:37 Antithrombin III, Activity Routine Beta-2 Glycoprotein 1 IgG, IgM Routine Cardiolipin IGG & IGM Routine Homocysteine Routine Lupus Anticoagulant Panel Routine Date of Encounter: 10/09/17 Hospital course: Mr. Chavarria is a 42 year old male - Time Spent with Patient Total time spent providing and/or coordinating discharge services: - Discharge Medications Prescriptions: Aspirin Enteric Coated [Aspirin EC] 325 mg PO DAILY #30 tablet. Atorvastatin [Lipitor] 40 mg PO HS #30 tablet Home Medications: HYDROcodone/Acet 10/325 mg [[place] 10-325 mg] 1 tab PO Q8H PRN 02/16/17 [History] Lidocaine 1 patch TP DAILY 02/16/17 [History] Losartan Potassium [Cozaar] 50 mg PO DAILY 02/16/17 [History] Metoprolol [Lopressor] 25 mg PO BID 02/16/17 [History] Meloxicam 7.5 mg PO DAILY 10/08/17 [History] Aspirin Enteric Coated [Aspirin EC] 325 mg PO DAILY #30 tablet. 10/09/17 [Rx] Atorvastatin [Lipitor] 40 mg PO HS #30 tablet 10/09/17 [Rx] Allergies/Adverse Reactions: 3 Allergy/AdvReac Type Severity Reaction Status Date / Time No Known Allergies Allergy Verified 10/08/17 15:33 Date of admission: 10/08/17 16:36 Primary care physician: Salomón Garcia DO - Constitutional Vitals: Temp Pulse Resp BP Pulse Ox 97.9 F 64 18 151/99 97 10/09/17 11:02 10/09/17 11:02 10/09/17 11:02 10/09/17 11:02 10/09/17 11:02 - Patient Status Disposition: Home, Self-Care Condition: Good - Discharge Instructions Instructions: Aspirin (By mouth), Atorvastatin (By mouth), Clopidogrel (By mouth), Ischemic Stroke (DC) Follow Up With: Salomón Garcia DO [Primary Care Provider] - 10/15/17 3:15 pm Alex Ludwig MD [Partnered Physician] - 10/13/17 9:45 am <Kostas Dobson - Last Filed: 10/09/17 17:21> - NOTES TO OUTPATIENT PROVIDER Notes to Outpatient Provider: Mr. Chavarria presented to the ED on 10/08 with memory loss and headache and CT showed evidence for small old infarct in the right frontotemporal region. A follow up MRI showed acute L cerebellar lacunar infarct without hemorrhage. A R frontal opercular encephalomalacia and gliosis compatible with prior infarction or injury were also found. An echo showed an LVEF of 60-65% and no patent foramen ovale. Today, he complains of headache that is not atypical for him. Carotid doppler U/S results, hypercoagulability studies pending. Discharge on ASA, Plavix, and Atrovastatin. There is no need for PT/OT as per the physical exam findings. Follow up with residency clinic. Continue muscle strengthening exercises and activity. Try to incorperate more vegetables into diet as tolerable. Orders not resulted at time of discharge: Pending orders 10/09/17 11:18 Factor V Leiden Routine Protein C, Functional Routine Protein S, Free Routine Protein S, Functional Routine Prothrombin [id number] Mutation Routine Von Willebrand Factor Ag Routine 10/09/17 11:37 Antithrombin III, Activity Routine Beta-2 Glycoprotein 1 IgG, IgM Routine Cardiolipin IGG & IGM Routine Folate Routine Homocysteine Routine Lupus Anticoagulant Panel Routine Rheumatoid Factor Routine Vitamin B12 Routine Date of Encounter: 10/09/17 Time of Encounter: 08:30 - Discharge Diagnosis (1) Cerebellar infarct Priority: Primary Status: Acute Comments: Cerebellar lacunar infarction consider hypercoagulation disorder. doubt fat emboli because no recent surgery but could be responsible for old infarct mentioned below. Patient admits memory loss without any exacerbating factors. unlikely atherosclerosis considering lipid panel shows TA (H), VLDL 38 (H), HDL 31 (L) and no prior history of HTN. MRI showed acute L cerebellar lacunar infarct without hemorrhage. A R frontal opercular encephalomalacia and gliosis compatible with prior infarction or injury were also found. An echo showed an LVEF of 60-65% and no patent foramen ovale. CT showed evidence for small old infarct in frontotemporal region. carotid U/S report pending. hypercoagulation panel ordered. Discharge on ASA, clopidogrel, as well as atorvastatin. Patient given enoxaparin while here. (2) Lacunar infarct, acute Priority: Primary Status: Acute Comments: Cerebellar lacunar infarction consider hypercoagulation disorder. doubt fat emboli because no recent surgery but could be responsible for old infarct mentioned below. Patient admits memory loss without any exacerbating factors. unlikely atherosclerosis considering lipid panel shows TA (H), VLDL 38 (H), HDL 31 (L) and no prior history of HTN. MRI showed acute L cerebellar lacunar infarct without hemorrhage. A R frontal opercular encephalomalacia and gliosis compatible with prior infarction or injury were also found. An echo showed an LVEF of 60-65% and no patent foramen ovale. CT showed evidence for small old infarct in frontotemporal region. enoxaparin and ASA given. today the patient's neurologic exam is relatively benign. details in exam section. carotid U/S report pending. hypercoagulation panel pending. Discharge on ASA, clopidogrel, as well as atorvastatin. (3) Memory loss Priority: Secondary Status: Acute Comments: memory loss likely due to cerebellar lacunar infarct as evidenced by MRI. doubt drug/etoh intoxication due to negative screen. doubt delerium from UTI due to negative screen. Patient admits memory loss without any exacerbating factors. He reports waking up and "missing pieces" of the previous evening. MRI showed acute L cerebellar lacunar infarct without hemorrhage. A R frontal opercular encephalomalacia and gliosis compatible with prior infarction or injury were also found. treated with enoxaparin and ASA. discharge on ASA, clopidogrel, atorvastatin. hypercoagulability panel results pending. Hospital course: Mr. Chavarria is a 42 year old male presented to the ED 10/08 with complaint of memory loss and headache. CT showed evidence for small old infarct in frontotemporal region. follow up MRI showed acute L cerebellar lacunar infarct without hemorrhage. A R frontal opercular encephalomalacia and gliosis compatible with prior infarction or injury were also found. An echo showed an LVEF of 60-65% and no patent foramen ovale. carotid U/S report pending. The patient has no concerning signs of acute neurologic deficits today on exam. Discharge on ASA - 325 mg, clopidogrel, atorvastatin. - Time Spent with Patient Total time spent providing and/or coordinating discharge services: Date of admission: 10/08/17 16:36 Primary care physician: Salomón Garcia DO - Constitutional Vitals: Temp Pulse Resp BP Pulse Ox 97.9 F 64 18 151/99 97 10/09/17 11:02 10/09/17 11:02 10/09/17 11:02 10/09/17 11:02 10/09/17 11:02 Exam: PE general: middle aged m no acute distress HEENT: head - symmetric, atraumatic. nontender. heart: RRR, late systolic murmur heard loudest over mitral post. lungs: CTA throughout but slightly distant lung sounds neuro: CN 2-12 intact. strength 5/5 upper and lower Ext save interossii weakness and inability to dorsiflex d/t clubbed feet at . sensation intact upper and lower Ext. 3/4 patellar and brachioradialis reflexes. cerebellar: no pronator drift. finger to nose intact. gait-slightly unstable. failure of heel walk. heel to toe intact but unstable. walking on balls of feet intact. MSK: no pedal edema <ThallapaneniRambabu - Last Filed: 10/09/17 18:05> Orders not resulted at time of discharge: Pending orders 10/09/17 11:18 Factor V Leiden Routine Protein C, Functional Routine Protein S, Free Routine Protein S, Functional Routine Prothrombin [id number] Mutation Routine Von Willebrand Factor Ag Routine 10/09/17 11:37 Antithrombin III, Activity Routine Beta-2 Glycoprotein 1 IgG, IgM Routine Cardiolipin IGG & IGM Routine Homocysteine Routine Lupus Anticoagulant Panel Routine Date of Encounter: 10/09/17 Hospital course: Mr. Chavarria is a 42 year old male - Time Spent with Patient Total time spent providing and/or coordinating discharge services: Date of admission: 10/08/17 16:36 Primary care physician: Salomón Garcia DO - Constitutional Vitals: Temp Pulse Resp BP Pulse Ox 97.9 F 64 18 151/99 97 10/09/17 11:02 10/09/17 11:02 10/09/17 11:02 10/09/17 11:02 10/09/17 11:02 - Attending Attestation I examined this patient and my medical decision-making was reviewed with the Resident Physician Dr. Ruiz. I agree with the documented findings, disposition and treatment plan as described except to the extent set forth below. Mr. Chavarria is a 42 year old male with history of Umer-Danlos, mitral and aortic valve repairs. Patient woke up yesterday morning felt as though he cannot remember the previous day's events, and presented with concern for the loss of memory. He does not have a history of memory loss. Patient denied any focal motor or sensory deficits. Does not have history of stroke or TIA. Takes 81 mg aspirin at home.Pt is alert, awake and O x 3. Denied any CP. He does not have any more memory problems and denied any neuro deficits. His MRI of brain came back as positive for acute left cerebellar infarction. Recommend to take ASA + Plavix and statin. Medically stable to d/c home. Due to his Umer Danlos and recent thrombosis, ordered hyper coag panel to f/u as an out pt.
--- NOTE | 2017-10-09 17:39 | Electrocardiograph Report ---
[facility] Test Date: 2017-10-08 Pat Name: Nate Chavarria Department: 103 Room: 2NE18 Gender: M Global Ceo: TESSIE : 1975 Requested By: Js Isabel Order Number: [id number] Reading MD: Morgan Mireles Measurements Intervals Erwin Rate: 69 P: 3 MT: 169 QRS: 12 QRSD: 96 T: 42 QT: 376 QTc: 395 Interpretive Statements SINUS RHYTHM MODERATE VOLTAGE CRITERIA FOR LVH, CONSIDER NORMAL VARIANT [MEETS CRITERIA IN ONE OF: R(aVL), S(V1), R(V5), R(V5/V6)+S(V1)] Electronically Signed On 10-09-2017 17:37:10 EDT by Morgan Mireles
[2017-10-11 17:50] LABS: APTT (LE Anticoag) 45 sec (32-48); Diluted Russell Viper Venom 35 sec (33-44); PT (LE-Anticoag) 13.5 sec (12.0-15.5)
[2017-10-13 11:25] LABS: FACV Specimen WHOLE BLOOD
[2017-10-13 11:29] LABS: Fac V Leiden R506Q Mut Result NEGATIVE
[2017-10-14 08:29] LABS: Prothrombin G20210A Specimen WHOLE BLOOD
[2017-10-15 07:48] LABS: Prothrombin G20210A Mut Result NEGATIVE
== END 2017-10-09 16:28 | disposition home or self-care (01) | DRG 45 ==
LOC: EMEROO 11:13 → 2NENU 11:13
PROVIDERS: ADMIT Internal Medicine; ATTEND Internal Medicine

== ENCOUNTER 2017-10-21 17:21 | Observation (INO) ==
--- NOTE | 2017-10-21 18:08 | Emergency Department Note ---
Disposition Clinical Impression: Sensory deficit, right Disposition: Still a Patient Referrals: Salomón Garcia DO [Resident] - Forms: ED Satisfaction Letter General Adult HPI - General Chief complaint: ED Neuro Symptoms/Deficit Stated complaint: R side numbness Time Seen by Provider: 10/21/17 17:55 Source: patient Mode of arrival: ambulatory Limitations: no limitations Nursing Notes Reviewed: Yes Vital Signs Reviewed: Yes - History of Present Illness HPI Narrative: Patient is a 42-year-old male that presents the emergency department for numbness in the right hand and arm as well as the right lower extremity. Patient states this began approximately one hour prior to arrival. Patient states that he had a stroke approximately 2 weeks ago and had concern that this could potentially be related to a stroke. Patient states that he is also had a headache that is a bandlike sensation around his head. Patient does state that he has a history of migraines however this headache is different than his other migraines. Denies any sensitivity to light or sound. Patient denies any difficulty with ambulation or upper extremity dexterity. Pain Scale: 6 - Related Data Home Medications Medication Instructions Recorded Confirmed HYDROcodone/Acet 10/325 mg [[place] 1 tab PO Q8H PRN 02/16/17 10/08/17 10-325 mg] Lidocaine 1 patch TP DAILY 02/16/17 10/08/17 Losartan Potassium [Cozaar] 50 mg PO DAILY 02/16/17 10/08/17 Metoprolol [Lopressor] 25 mg PO BID 02/16/17 10/08/17 Meloxicam 7.5 mg PO DAILY 10/08/17 10/08/17 Previous Rx's Medication Instructions Recorded Aspirin Enteric Coated [Aspirin EC] 325 mg PO DAILY #30 tablet. 10/09/17 Atorvastatin [Lipitor] 40 mg PO HS #30 tablet 10/09/17 Allergies Allergy/AdvReac Type Severity Reaction Status Date / Time No Known Allergies Allergy Verified 10/08/17 15:33 All systems ED: reviewed and negative except as stated. Cardiovascular: Denies: chest pain Respiratory: Denies: dyspnea Neurological: Reports: headache, numbness. Denies: weakness Past Medical History - Past Medical History Medical history: Reports: other Surgical history: Reports: other Psychiatric history: Reports: anxiety - Social History Smoking Status: Never smoker Smokeless Tobacco Status: No Alcohol use: Reports: none Drug use: Reports: none Physical Exam - General Limitations: no limitations General appearance: alert, in no apparent distress - Head Head exam: atraumatic, normocephalic - Eye Eye exam: Present: normal appearance, EOMI - Neck Neck exam: Present: normal inspection, full ROM, trachea midline - Respiratory Respiratory exam: Present: normal lung sounds bilaterally. Absent: respiratory distress, wheezes - Cardiovascular Cardiovascular exam: Present: regular rate, normal rhythm, normal heart sounds, +S1, +S2 - Abdominal Exam Abdominal exam: Present: soft, Non-Tender, normal bowel sounds - Neurological Exam Neurological exam: Present: alert, oriented X3, CN II-XII intact - Expanded Neurological Exam Patient oriented to: Present: person, place, time Speech: Present: fluid speech Cranial nerves: EOM function (II, III, IV, ): Normal, facial sensation (V): Normal, facial palsy (VII): Normal, gag reflex (IX): Normal, spinal accessory function (XI): Normal, tongue deviation (XII): Normal Cerebellar function: finger to nose: Normal, heel to vazquez: Normal Motor strength - LUE: 5/5 Motor strength - RUE: 5/5 Motor strength - LLE: 5/5 Motor strength - RLE: 5/5 Upper motor neuron exam: pronator drift: Absent bilaterally Sensory exam upper extremity: light touch: Abnormal Right (Abnormal light touch on inner right arm) Sensory exam lower extremity: light touch: Normal Coma Scale Eye Opening: Spontaneous Coma Scale Motor Response: Obeys Commands Coma Scale Verbal Response: Oriented Coma Scale Total: 15 - Psychiatric Psychiatric exam: Present: normal affect, normal mood - Skin Skin exam: Present: warm, dry, intact Course Vital Signs Temperature 98.6 F 10/21/17 17:31 Pulse Rate 86 10/21/17 17:31 Respiratory Rate 15 10/21/17 17:31 Blood Pressure 96/70 10/21/17 17:31 O2 Sat by Pulse Oximetry 94 10/21/17 17:31 Temperature 98.6 F 10/21/17 18:34 Pulse Rate 104 10/21/17 18:55 Respiratory Rate 16 10/21/17 18:34 Blood Pressure 179/97 10/21/17 18:55 O2 Sat by Pulse Oximetry 94 10/21/17 18:34 Oxygen Delivery Oxygen Delivery Room Air Medical Decision Making - MDM Narrative Medical decision making narrative: Due the patient presented to the emergency department with reports of altered sensation in his right upper and lower extremity there is concern for possible neurologic involvement and stroke-related symptoms due to his recent stroke and admission. A neurologic examination was performed and the patient had an NIH stroke scale of 1. With an NIH stroke scale of 1 this patient would not be a candidate for TPA. A stroke alert was not called due to these symptoms being nonspecific and there were no other neurologic findings at this time. A CT scan of the head will still be obtained and a neurologic workup will be done. Due to the patient's symptoms and recent stroke he will likely need to be admitted to the hospital for further evaluation and management. Due to shift change the patient will be signed out to the night team of Dr. Brenner and Dr. Rosales. Please see their note for medical decision making and final disposition. - Lab Data Result diagrams: 10/21/17 18:22 Lab Results 10/21/17 10/21/17 Range/Units 18:22 18:22 WBC 10.2 (4.3-11.1) K/mcL RBC 5.18 (4.19-5.50) M/mcL Hgb 15.8 (12.9-16.9) g/dL Hct 46.8 (37.5-50.1) % MCV 90.3 (83.0-100.0) fL MCH 30.5 (28.0-33.3) pg MCHC 33.8 (31.6-35.5) g/dL RDW 13.3 (11.5-14.5) % Plt Count 228 (140-400) K/mcL MPV 11.3 (9.4-12.4) fL Immature Gran % 0.5 (0-4) % Seg Neutrophils % 66.1 % Lymphocytes % 22.0 % Monocytes % 8.9 % Eosinophils % 1.6 % Basophils % 0.9 % Neutrophils # 6.8 (1.6-8.9) K/mcL Lymphocytes # 2.3 (0.6-4.6) K/mcL Monocytes # 0.9 (0.0-1.3) K/mcL Eosinophils # 0.2 (0.0-0.6) K/mcL Basophils # 0.1 (0.0-0.2) K/mcL PT 12.5 H (9.4-12.1) Seconds INR 1.1 APTT 32.3 (26.0-36.0) Seconds - EKG Data EKG #1 EKG attestation: Yes I reviewed and interpreted this EKG. EKG results narrative: EKG showed a sinus rhythm at a rate of 83 bpm, WV interval 154, QRS duration of 92, QTC of 385 with a normal axis. No evidence of STEMI and EKG. NIH Stroke Scale - Level of Consciousness LOC: Alert - LOC Questions LOC Questions: Answers both correctly - LOC Commands LOC Commands: Performs both correctly - Best Gaze Best Gaze: Normal - Visual Visual: No visual loss - Facial Palsy Facial Palsy: Normal - Motor Arms Motor Arm-Left: No drift for 10 seconds Motor Arm-Right: No drift for 10 seconds - Motor Legs Motor Leg-Left: No drift for 5 seconds Motor Leg-Right: No drift for 5 seconds - Limb Ataxia Limb Ataxia: Normal, No Ataxia - Sensory Sensory: Mild to moderate loss, "not as sharp" - Best Language Best Language: No aphasia - Dysarthria Dysarthria: Normal - Extinction and Inattention Extinction and Inattention: Normal - NIHSS Total Score NIHSS Total Score: 1
[2017-10-21] MEDS ORDERED: Prochlorperazine 10 MG/2 ML VIAL IVP STA (18:09)
--- NOTE | 2017-10-21 18:11 | Emergency Department Note ---
Disposition Clinical Impression: Sensory deficit, right Disposition: Still a Patient Forms: ED Satisfaction Letter General Adult HPI - General Chief complaint: ED Neuro Symptoms/Deficit Stated complaint: R side numbness Time Seen by Provider: 10/21/17 17:55 Source: patient Mode of arrival: ambulatory Limitations: no limitations - History of Present Illness Pain Scale: 6 - Related Data Home Medications Medication Instructions Recorded Confirmed HYDROcodone/Acet 10/325 mg [[place] 1 tab PO Q8H PRN 02/16/17 10/08/17 10-325 mg] Lidocaine 1 patch TP DAILY 02/16/17 10/08/17 Losartan Potassium [Cozaar] 50 mg PO DAILY 02/16/17 10/08/17 Metoprolol [Lopressor] 25 mg PO BID 02/16/17 10/08/17 Meloxicam 7.5 mg PO DAILY 10/08/17 10/08/17 Previous Rx's Medication Instructions Recorded Aspirin Enteric Coated [Aspirin EC] 325 mg PO DAILY #30 tablet. 10/09/17 Atorvastatin [Lipitor] 40 mg PO HS #30 tablet 10/09/17 Allergies Allergy/AdvReac Type Severity Reaction Status Date / Time No Known Allergies Allergy Verified 10/08/17 15:33 Cardiovascular: Denies: chest pain Respiratory: Denies: dyspnea Neurological: Reports: headache, numbness. Denies: weakness Past Medical History - Past Medical History Medical history: Reports: other Surgical history: Reports: other Psychiatric history: Reports: anxiety - Social History Smoking Status: Never smoker Smokeless Tobacco Status: No Alcohol use: Reports: none Drug use: Reports: none Physical Exam - General Limitations: no limitations General appearance: alert, in no apparent distress Course Vital Signs Temperature 98.6 F 10/21/17 17:31 Pulse Rate 86 10/21/17 17:31 Respiratory Rate 15 10/21/17 17:31 Blood Pressure 96/70 10/21/17 17:31 O2 Sat by Pulse Oximetry 94 10/21/17 17:31 Temperature 98.6 F 10/21/17 17:31 Pulse Rate 86 10/21/17 17:31 Respiratory Rate 15 10/21/17 17:31 Blood Pressure 96/70 10/21/17 17:31 O2 Sat by Pulse Oximetry 94 10/21/17 17:31 Oxygen Delivery Oxygen Delivery Room Air Attestation Statement - Attestation Attestation: I examined this patient and my medical decision-making was reviewed with the Resident Physician. I agree with the documented findings, disposition and treatment plan as described except to the extent set forth below. Patient presents to the ED with a chief complaint of right-sided altered sensation. Started about 2 hours ago. Patient states he was coming the timing is somebody easily felt he would get it checked. Patient is 2 weeks status post admission for a stroke cause some memory impairment. Patient states he is altered sensation in his arm and leg. No weakness. No difficulty holding things. No difficulty walking. He does have a headache that he states feels different than prior migraine. He is awake and alert on our examination. Ambulatory at baseline. Clear speech. NIH scale 1 for sensory discrepancy on the inner right arm. Plan. Patient has a NIH of 1. Recent stroke. He would not be a TPA candidate. Stroke workup. Patient will be signed out to waste cotton cleaner.
[2017-10-21 18:47] LABS: Basophils # 0.1 K/mcL (0.0-0.2); Basophils % 0.9 %; Eosinophils # 0.2 K/mcL (0.0-0.6); Eosinophils % 1.6 %; Hematocrit 46.8 % (37.5-50.1); Hemoglobin 15.8 g/dL (12.9-16.9); Immature Granulocytes % 0.5 % (0-4); Lymphocytes # 2.3 K/mcL (0.6-4.6); Mean Corpuscular HGB Conc 33.8 g/dL (31.6-35.5); Mean Corpuscular Hemoglobin 30.5 pg (28.0-33.3); Mean Corpuscular Volume 90.3 fL (83.0-100.0); Mean Platelet Volume 11.3 fL (9.4-12.4); Monocytes # 0.9 K/mcL (0.0-1.3); Monocytes % 8.9 %; Neutrophils # 6.8 K/mcL (1.6-8.9); Platelet Count 228 K/mcL (140-400); Red Blood Count 5.18 M/mcL (4.19-5.50); Red Cell Distribution Width 13.3 % (11.5-14.5); Segmented Neutrophils % 66.1 %
[2017-10-21 18:56] LABS: INR 1.1; Prothrombin Time 12.5 Seconds (9.4-12.1)
[2017-10-21 18:59] LABS: Activated Partial Thrombo Time 32.3 Seconds (26.0-36.0)
[2017-10-21 19:09] LABS: Troponin I < 0.03 ng/mL (< 0.04)
[2017-10-21 19:12] LABS: BUN/Creatinine Ratio 13 (6-26); Blood Urea Nitrogen 17 mg/dL (6-20); Calcium 9.5 mg/dL (8.6-10.3); Carbon Dioxide 22 mEq/L (23-29); Chloride 111 mEq/L (98-107); Glucose 100 mg/dL (70-105); Osmolality,Calculated 290 (280-300); Potassium 3.7 mEq/L (3.5-5.1); Sodium 139 mEq/L (136-145); eGFR For Non-African Americans 59 (> 60)
--- NOTE | 2017-10-21 19:56 | Emergency Department Note ---
Disposition Clinical Impression: Sensory deficit, right, History of CVA (cerebrovascular accident) Disposition: Admitted As Inpatient Referrals: Salomón Garcia DO [Primary Care Provider] - Forms: ED Satisfaction Letter Time of Disposition: 19:59 General Adult HPI - General Chief complaint: ED Neuro Symptoms/Deficit Stated complaint: R side numbness Time Seen by Provider: 10/21/17 17:55 Source: patient Mode of arrival: ambulatory Limitations: no limitations Nursing Notes Reviewed: Yes Vital Signs Reviewed: Yes - History of Present Illness HPI Narrative: Patient was signed out to me by daytime physicians Dr. Isabel and Dr. Salinas pending reevaluation, CT scan of the head and final disposition. Please see their note for further details. Pain Scale: 6 - Related Data Home Medications Medication Instructions Recorded Confirmed HYDROcodone/Acet 10/325 mg [[place] 1 tab PO Q8H PRN 02/16/17 10/21/17 10-325 mg] Lidocaine 1 patch TP DAILY 02/16/17 10/21/17 Losartan Potassium [Cozaar] 50 mg PO DAILY 02/16/17 10/21/17 Metoprolol [Lopressor] 25 mg PO BID 02/16/17 10/21/17 Meloxicam 7.5 mg PO DAILY 10/08/17 10/21/17 Previous Rx's Medication Instructions Recorded Aspirin Enteric Coated [Aspirin EC] 325 mg PO DAILY #30 tablet. 10/09/17 Atorvastatin [Lipitor] 40 mg PO HS #30 tablet 10/09/17 Allergies Allergy/AdvReac Type Severity Reaction Status Date / Time No Known Allergies Allergy Verified 10/08/17 15:33 Cardiovascular: Denies: chest pain Respiratory: Denies: dyspnea Neurological: Reports: headache, numbness. Denies: weakness Past Medical History - Past Medical History Medical history: Reports: other Surgical history: Reports: other Psychiatric history: Reports: anxiety - Social History Smoking Status: Never smoker Smokeless Tobacco Status: No Alcohol use: Reports: none Drug use: Reports: none Physical Exam - General Limitations: no limitations General appearance: alert, in no apparent distress Course Course Narrative: Patient was signed out to me by daytime physicians Dr. Isabel and Dr. Salinas pending reevaluation, CT scan of the head and final disposition. Please see their note for further details. Nate is a 42-year-old male presenting with right extremity numbness. Symptoms occurred in our prior to initial arrival. His initial NIH score was documented 1. He was not considered a TPA candidate. Stroke alert was not initiated. Patient recently was admitted and diagnosed with a acute left cerebellar lacunar infarct roughly 2 weeks ago. He denies any slurred speech or weakness today. He has no residual weakness from his prior stroke. He is on aspirin 325 mg which she did take this morning. He is also describing a bandlike headache to the back of his head that is slightly different from his typical migraines typically is isolated to one side. It was gradual onset. On my physical exam patient is awake alert and oriented. Neurologic exam is normal without any focal neural deficits. Normal finger to nose and heel to vazquez examination. Review of his labs show some slight renal insufficiency 1.33, will give a liter of normal saline bolus. Otherwise no significant abnormalities. CT scan of his head did not reveal any new hemorrhagic abnormality. A brain MRI with contrast was recommended for possible neoplasm of the left temporal lobe. At this time it is recommended that he be admitted for reevaluation for possible new infarction or worsening sequelae of prior CVA. Patient is in agreement with this plan. Impression is right arm numbness and prior CVA 1. Acute left cerebellar lacunar infarction measuring 6 x 3 mm. No associated hemorrhage. 2. 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 The findings were sent to the Radiology Results Communication [facility] at 2:20 pm on 10/08/2017 to be communicated to a licensed caregiver. - Consultations Consultation #1: Spoke with on-call hospitalist diogenes De La Cruz to admit for history for CVA with new right side sensory deficit. No further orders at this time Time: 20:26 Vital Signs Temperature 98.6 F 10/21/17 17:31 Pulse Rate 86 10/21/17 17:31 Respiratory Rate 15 10/21/17 17:31 Blood Pressure 96/70 10/21/17 17:31 O2 Sat by Pulse Oximetry 94 10/21/17 17:31 Temperature 98.6 F 10/21/17 18:34 Pulse Rate 104 10/21/17 18:55 Respiratory Rate 16 10/21/17 18:34 Blood Pressure 179/97 10/21/17 18:55 O2 Sat by Pulse Oximetry 94 10/21/17 18:34 Oxygen Delivery Oxygen Delivery Room Air Medical Decision Making - MDM Narrative Medical decision making narrative: Patient was discussed with my attending physician who agrees with ED management and final disposition. They independently evaluated the patient. Please refer to their attestation to this encounter for additional information. This note was generated by [employer] voice recognition software and as a result grammatical or spelling errors may occur using this program. - Medical Records Medical records reviewed: Yes I reviewed the patient's medical records. - Lab Data Lab results reviewed: Yes I reviewed the patient's lab results. Result diagrams: 10/21/17 18:22 10/21/17 18:22 Lab Results 10/21/17 10/21/17 10/21/17 Range/Units 18:22 18:22 18:22 WBC 10.2 (4.3-11.1) K/mcL RBC 5.18 (4.19-5.50) M/mcL Hgb 15.8 (12.9-16.9) g/dL Hct 46.8 (37.5-50.1) % MCV 90.3 (83.0-100.0) fL MCH 30.5 (28.0-33.3) pg MCHC 33.8 (31.6-35.5) g/dL RDW 13.3 (11.5-14.5) % Plt Count 228 (140-400) K/mcL MPV 11.3 (9.4-12.4) fL Immature Gran % 0.5 (0-4) % Seg Neutrophils % 66.1 % Lymphocytes % 22.0 % Monocytes % 8.9 % Eosinophils % 1.6 % Basophils % 0.9 % Neutrophils # 6.8 (1.6-8.9) K/mcL Lymphocytes # 2.3 (0.6-4.6) K/mcL Monocytes # 0.9 (0.0-1.3) K/mcL Eosinophils # 0.2 (0.0-0.6) K/mcL Basophils # 0.1 (0.0-0.2) K/mcL PT 12.5 H (9.4-12.1) Seconds INR 1.1 APTT 32.3 (26.0-36.0) Seconds Sodium 139 (136-145) mEq/L Potassium 3.7 (3.5-5.1) mEq/L Chloride 111 H (98-107) mEq/L Carbon Dioxide 22 L (23-29) mEq/L BUN 17 (6-20) mg/dL Creatinine 1.33 H (0.70-1.30) mg/dL Est GFR ( Amer) > 60 (> 60) Est GFR (Non-Af Amer) 59 L (> 60) BUN/Creatinine Ratio 13 (6-26) Glucose 100 (70-105) mg/dL Calculated Osmolality 290 (280-300) Calcium 9.5 (8.6-10.3) mg/dL Troponin I < 0.03 (< 0.04) ng/mL - Radiology Data Radiology results reviewed: Yes I reviewed the patient's radiology results. Head CT 10/21/17 18:02 IMPRESSION: No acute intracranial abnormality. Old ischemic event in the right frontal area. The most recently demonstrated left cerebellar infarct is not seen on the current evaluation. RECOMMENDATIONS: Brain MRI with contrast to rule out neoplasm in the left temporal lobe. D/ / 10/21/2017 19:16:01 Sruthi Murillo MD / [email or web address] Interpreting Provider: Sruthi Murillo MD
[2017-10-21] MEDS ORDERED: 0.9 % Sodium Chloride 1,000 ML IVC ONE (20:25)
[2017-10-21] MEDS ORDERED: *HR* HYDROcodone/Acet 10/325 mg TABLET PO PRN (22:26)
[2017-10-21] MEDS ORDERED: Gadolinium Contrast Agent (WT Based) IV PRN (22:32)
[2017-10-21] MEDS ORDERED: Naloxone 0.4 MG/ML INJ IVP PRN (22:34)
[2017-10-21] MEDS ORDERED: Acetaminophen 325 MG TABLET PO PRN (22:34)
[2017-10-21] MEDS ORDERED: Ondansetron 4 MG/2 ML VIAL IVP PRN (22:38)
--- NOTE | 2017-10-21 22:41 | Internal Med History&Physical ---
Date of Encounter: 10/21/17 Time of Encounter: 22:38 Internal Medicine - H&P: HPI Chief complaint: "Right arm and leg numbness" Admitted From: Emergency Dept Plans for Post Hospital Care: Home History of present illness: Mr. Chavarria is a 42 year old male with PMH significant for cerebellar infarct CVA diagnosed 2 weeks ago, who presents to ED today with headache and right arm/leg numbness. He states that symptoms started around noon today, with headache preceding the sensory deficits. He was recently hospitalized 2 weeks ago for CVA and had full workup done with neurology consultation. He followed up with neurology outpatient as directed. He was discharged on aspirin 325 mg, plavix, and statin. I have personally reviewed all prior hospitalization records, including the discharge summary. He denies any weakness or other focal neurological deficits today. He denies dysphagia or speech difficulties. At the time of my examination, he states that his headache is improved and right- sided sensory deficits almost completely resolved. He has prior history of migraine headaches, but "this headache was different." He had similar headache during previous presentation with CVA. He denies fever, chills, chest pain, SOB , nausea, vomiting, abdominal pain, changes in bladder, or changes in bowels. In the ED, NIH score was 1, and he was not a tPA candidate. Labwork was unremarkable except of mildly elevated creatinine to 1.33; he has no history of kidney disease. CT head showed no acute intracranial abnormality, but recommended MRI brain with contrast to rule out left temporal lobe neoplasm. He received 1L IV NS bolus, compazine 10 mg IV once, and benadryl 25 mg IV once. I was asked to admit patient for CVA vs TIA workup. Past Med Surg Social Fam HX - Past Medical History Attestation: Yes The following information was validated with the patient. Source: patient Medical history: arthritis (Lumbar Spine), CVA (Cerebellar Infarct), hyperlipidemia, hypertension, migraine, other Additional medical history: connective tissue disorder Psychiatric history: anxiety - Past Surgical History Surgical History: other Additional surgical history: foot surgery, eye correction x5, B knee scopes, bhavani fundoplication, - Social History Smoking Status: Never smoker Smokeless Tobacco Status: No Alcohol use: none Drug use: none - Family History Father Hx Family Cancer: Yes (Brain Cancer) - Additional Family History Additional family history: Family history verified with patient. Internal Medicine - H&P: Meds HYDROcodone/Acet 10/325 mg [[place] 10-325 mg] 1 tab PO Q8H PRN 02/16/17 [History] Lidocaine 1 patch TP DAILY 02/16/17 [History] Losartan Potassium [Cozaar] 50 mg PO DAILY 02/16/17 [History] Metoprolol [Lopressor] 25 mg PO BID 02/16/17 [History] Meloxicam 7.5 mg PO DAILY 10/08/17 [History] Aspirin Enteric Coated [Aspirin EC] 325 mg PO DAILY #30 tablet. 10/09/17 [Rx] Atorvastatin [Lipitor] 40 mg PO HS #30 tablet 10/09/17 [Rx] 3 Allergy/AdvReac Type Severity Reaction Status Date / Time No Known Allergies Allergy Verified 10/08/17 15:33 All Systems PM: A 10-system review of systems was performed and is negative for pertinent findings except as documented above in the HPI. - Constitutional Vitals: Temp Pulse Resp BP Pulse Ox 97.7 F 68 16 117/84 92 10/21/17 21:45 10/21/17 21:45 10/21/17 21:45 10/21/17 21:45 10/21/17 21:45 General appearance: Present: cooperative, A&O X 3, pleasant, no acute distress, answers questions appropriately - Head Head exam: Present: atraumatic, normocephalic - Eye Eye exam: Present: EOMI, PERRL. Absent: conjunctival injection, nystagmus, scleral icterus - ENT ENT exam: Present: mucous membranes moist, normal external ear exam, normal oropharynx - Neck Neck exam general surgery: Present: supple, trachea midline. Absent: lymphadenopathy, tenderness, thyromegaly - Respiratory Respiratory exam: Present: CTAB. Absent: accessory muscle use, rales, rhonchi, wheezes Additional comments: Normal WOB - Cardiovascular Cardiovascular exam: Present: RRR, +S1, +S2. Absent: diastolic murmur, gallop, rubs, systolic murmur Additional comments: No BLE edema - GI/Abdominal GI/Abdominal exam: Present: normal bowel sounds, soft. Absent: distended, hepatomegaly, mass, splenomegaly, tenderness - Neurological Exam Neurological exam: Present: alert, CN II-XII intact, oriented X3, no focal deficits, strengths equal and symetr throughout. Absent: motor sensory deficit , facial droop, speech deficit - Psychiatric Psychiatric exam: Present: normal affect, normal mood. Absent: agitated, anxious, depressed - Skin Skin exam: Present: dry, intact, warm. Absent: cyanosis, erythema, rash Internal Med - H&P Results - Labs CBC & Chem 7: 10/21/17 18:22 10/21/17 18:22 - Assessment and plan (1) Sensory deficit, right Current Visit: Yes Status: Acute Assessment and plan: Deficit now mostly resolved. Given history of recent cerebellar infarct, will admit for observation. Continue NIHSS protocol with neurochecks. Will obtain repeat MRI brain with and without contrast, especially given questionable temporal lobe finding on CT head. Will consult neurology in AM. No speech deficits, so will defer ST consult and order cardiac diet after passing nursing dysphagia screen. Will consult PT/OT/SW. Will continue home aspirin 325 mg, plavix (not on home medication list, but he was discharged on this during last hospitalization), and statin. Holding anti-hypertensives for now given hypotension likely secondary to dehydration, and to allow permissive hypertension. Will monitor closely and await further recommendations from neurology. (2) History of CVA (cerebrovascular accident) Current Visit: Yes Status: Acute Assessment and plan: Management as per above. (3) Migraine Current Visit: Yes Status: Acute Assessment and plan: Continue home norco. Start benadryl 25 mg PO Q6H PRN for headache. Start zofran 4 mg IV Q6H PRN nausea/vomiting. Will consult neurology in AM as per above. Qualifiers: Migraine type: without aura Status migrainosus presence: without status migrainosus Intractability: not intractable Qualified Code(s): G43.009 - Migraine without aura, not intractable, without status migrainosus (4) FREDDY (acute kidney injury) Current Visit: Yes Status: Acute Assessment and plan: Cr = 1.33. Given 1L NS bolus in ED. Encouraged PO hydration after passing nursing dysphagia screen. Recheck BMP in AM. (5) HTN (hypertension) Current Visit: Yes Status: Chronic Assessment and plan: Hypotensive in ED; improved with fluid bolus. Hold home medications for now. Restart tomorrow if BP improved. Qualifiers: Hypertension type: essential hypertension Qualified Code(s): I10 - Essential (primary) hypertension (6) HLD (hyperlipidemia) Current Visit: Yes Status: Chronic Assessment and plan: Continue home medications. Qualifiers: Hyperlipidemia type: mixed hyperlipidemia Qualified Code(s): E78.2 - Mixed hyperlipidemia (7) Facet arthritis of lumbar region Current Visit: Yes Status: Chronic Assessment and plan: Continue home medications. (8) DVT prophylaxis Current Visit: Yes Status: Acute Assessment and plan: Start SCDs and lovenox 40 mg SQ QD. - Time Spent With Patient Total time spent is greater than 50% in coordination of care (as documented) at patient's floor/unit and/or counseling patient: less than 15 minutes
[2017-10-21] MEDS: *HR* Enoxaparin 40 MG/0.4 ML SYRINGE SQ SCH (23:45)
[2017-10-22 04:48] LABS: Basophils # 0.1 K/mcL (0.0-0.2); Basophils % 0.9 %; Eosinophils # 0.3 K/mcL (0.0-0.6); Eosinophils % 3.6 %; Hematocrit 42.6 % (37.5-50.1); Hemoglobin 14.3 g/dL (12.9-16.9); Immature Granulocytes % 0.6 % (0-4); Lymphocytes % 37.2 %; Mean Corpuscular HGB Conc 33.6 g/dL (31.6-35.5); Mean Corpuscular Hemoglobin 30.6 pg (28.0-33.3); Mean Corpuscular Volume 91.2 fL (83.0-100.0); Monocytes # 0.7 K/mcL (0.0-1.3); Monocytes % 8.2 %; Neutrophils # 3.9 K/mcL (1.6-8.9); Platelet Count 169 K/mcL (140-400); Red Blood Count 4.67 M/mcL (4.19-5.50); Red Cell Distribution Width 13.7 % (11.5-14.5); Segmented Neutrophils % 49.5 %
[2017-10-22 04:57] LABS: INR 1.1; Prothrombin Time 12.5 Seconds (9.4-12.1)
[2017-10-22 05:10] LABS: Troponin I < 0.03 ng/mL (< 0.04)
[2017-10-22 05:11] LABS: BUN/Creatinine Ratio 15 (6-26); Blood Urea Nitrogen 17 mg/dL (6-20); Calcium 8.6 mg/dL (8.6-10.3); Carbon Dioxide 23 mEq/L (23-29); Chloride 111 mEq/L (98-107); Chol/HDL Ratio 2.7 (0-4.9); Cholesterol 82 mg/dL (< 200); Glucose 87 mg/dL (70-105); HDL Cholesterol 30 mg/dL (40-59); LDL Cholesterol,Calculated 33 mg/dL (0-99); Osmolality,Calculated 291 (280-300); Sodium 140 mEq/L (136-145); Triglycerides 96 mg/dL (< 150); eGFR For Non-African Americans > 60 (> 60)
[2017-10-22] MEDS: *HR* Enoxaparin 40 MG/0.4 ML SYRINGE SQ SCH (07:47)
[2017-10-22] MEDS ORDERED: Aspirin Enteric Coated 325 MG Tablet PO SCH (09:00)
--- NOTE | 2017-10-22 11:05 | Internal Med Progress Note ---
Date of Encounter: 10/22/17 Time of Encounter: 10:00 - Assessment and plan (1) Sensory deficit, right Current Visit: Yes Status: Acute Assessment and plan: Deficit now mostly resolved. Given history of recent cerebellar infarct, will admit for observation. Continue NIHSS protocol with neurochecks. Will obtain repeat MRI brain with and without contrast, especially given questionable temporal lobe finding on CT head. Will consult neurology in AM. No speech deficits, so will defer ST consult and order cardiac diet after passing nursing dysphagia screen. Will consult PT/OT/SW. Will continue home aspirin 325 mg, plavix (not on home medication list, but he was discharged on this during last hospitalization), and statin. Holding anti-hypertensives for now given hypotension likely secondary to dehydration, and to allow permissive hypertension. Will monitor closely and await further recommendations from neurology. (2) Facet arthritis of lumbar region Current Visit: Yes Status: Chronic (3) History of CVA (cerebrovascular accident) Current Visit: Yes Status: Acute (4) FREDDY (acute kidney injury) Current Visit: Yes Status: Acute (5) HTN (hypertension) Current Visit: Yes Status: Chronic Qualifiers: Hypertension type: essential hypertension Qualified Code(s): I10 - Essential (primary) hypertension (6) HLD (hyperlipidemia) Current Visit: Yes Status: Chronic Qualifiers: Hyperlipidemia type: mixed hyperlipidemia Qualified Code(s): E78.2 - Mixed hyperlipidemia (7) Migraine Current Visit: Yes Status: Acute Qualifiers: Migraine type: without aura Status migrainosus presence: without status migrainosus Intractability: not intractable Qualified Code(s): G43.009 - Migraine without aura, not intractable, without status migrainosus (8) DVT prophylaxis Current Visit: Yes Status: Acute - Time Spent With Patient Total time spent is greater than 50% in coordination of care (as documented) at patient's floor/unit and/or counseling patient: - Subjective Interval history: Mr. Chavarria was seen at bedside this morning. 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 He presented last night due to new onset headache and right arm/leg numbness. He noted the headache felt different than his past headache. He stated the numbness started from his right hand and then progressed to his arm and his leg. He had no other symptoms, denied nausea, chest pain, shortness of breath, emesis, photophobia, changes in vision, changes in gait or strength. This morning he stated the numbness is now resolved and have no residual symptoms from yesterday. - Constitutional Vitals: Temp Pulse Resp BP Pulse Ox 97.5 F L 65 16 116/81 96 10/22/17 07:11 10/22/17 07:11 10/22/17 07:11 10/22/17 07:11 10/22/17 07:11 General appearance: Present: cooperative, A&O X 3, pleasant, no acute distress, answers questions appropriately - Head Head exam: Present: atraumatic, normocephalic - Eye Eye exam: Present: EOMI, sclera anicteric. Absent: nystagmus - ENT ENT exam: Present: mucous membranes moist - Neck Neck exam general surgery: Present: full ROM, trachea midline - Respiratory Respiratory exam: Present: CTAB. Absent: rales, stridor, wheezes - Cardiovascular Cardiovascular exam: Absent: clicks, gallop, JVD Additional comments: has a 3/6 systolic ejection murmur - GI/Abdominal GI/Abdominal exam: Present: normal bowel sounds, soft. Absent: firm, rigid - Extremities Exam Extremities exam: Present: warm. Absent: calf tenderness, pedal edema, tenderness - Neurological Exam Neurological exam: Present: alert, oriented X3. Absent: motor sensory deficit, strengths equal and symetr throughout, speech deficit - Psychiatric Psychiatric exam: Present: anxious, normal affect, normal mood - Skin Skin exam: Present: dry, intact, warm Additional comments: has a scar on his mediastinum from a previous surgery, aortic and mitral valve surgery Internal Medicine: Result - Labs CBC & Chem 7: 10/22/17 04:18 10/22/17 04:18 Labs: Short CBC 10/22/17 Range/Units 04:18 WBC 8.0 (4.3-11.1) K/mcL Hgb 14.3 D (12.9-16.9) g/dL Hct 42.6 (37.5-50.1) % Plt Count 169 (140-400) K/mcL Neutrophils # 3.9 (1.6-8.9) K/mcL BMP 10/22/17 04:18 Sodium 140 Potassium 4.0 Chloride 111 H Carbon Dioxide 23 BUN 17 Creatinine 1.16 Glucose 87 Calcium 8.6 Cardiac Enzymes 10/22/17 Range/Units 04:18 Troponin I < 0.03 (< 0.04) ng/mL - ABG Interpretation ABG results: PT/INR, D-dimer PT 12.5 Seconds (9.4-12.1) H 10/22/17 04:18 - Impressions Impressions Brain MRI 10/22/17 22:32 IMPRESSION: 1. No evidence of left temporal lobe neoplasm, as clinically questioned. No evidence of acute infarction. 2. Interval resolution of previously demonstrated left cerebellar infarction. 3. Scattered foci of periventricular and subcortical white matter signal abnormality compatible with minimal chronic microvascular ischemic changes. 4. Stable right frontal lobe encephalomalacia compatible with prior infarction or injury. D/ / Dm Ocampo MD / Dm Ocampo MD Interpreting Provider: Dm Ocampo MD - VTE Documentation of Mechanical Device: Intermittent pneumatic compression device Consult Discharge Plan - Plan Referrals: Salomón Garcia DO [Primary Care Provider] -
--- NOTE | 2017-10-22 11:08 | Event Note ---
Date of Encounter: 10/22/17 Time of Encounter: 11:03 Patient was seen and examined. I agree with the progress note as written by the resident physician. Patient presents with neurological symptoms history of CVA in the past. He presented with right arm and leg numbness as well as headache. He was not a TPA candidate. He is on aspirin and Plavix already. He was found to have acute kidney injury which is resolving with IV fluids. GEN: NAD CVS: RRR. S1, S2, No m/r/g RESP: CTAB ABD: Soft, NT, ND, +BS EXT: No edema. 2+ DP. No rashes NEURO: Nonfocal Neurology see CT head and MRI brain results noted. No evidence for acute infarct Carotid ultrasounds done earlier this month were normal Echocardiogram done earlier this month with an EF of 60-65% and mild left ventricular diastolic dysfunction. Bioprosthetic valve seen Continue aspirin and Plavix for now. Gentle hydration Resume home medications DVT prophylaxis
--- NOTE | 2017-10-22 14:51 | Neurology - Consult Note ---
Date of Encounter: 10/22/17 Time of Encounter: 14:40 History of Present Illness HPI: Mr. Chavarria is a 42 year old male with a history of HTN, Umer-Danlos syndrome and left cerebellar infarct 2 weeks ago. Hypercoagulation testing was done during that admission with no significant findings. He followed up with Dr. Ludwig in Neurology last week. Discussed medication compliance and recommended taking 325 mg aspirin daily. Patient states he has been more compliant with his medications since admission 2 weeks ago, taking them approximately 80% of the time. He has been taking full-strength aspirin daily, does not think has been on Plavix. Yesterday at 1300 developed an occipital headache that did not localize to one side or the other. He does have a history of migraines for which he takes Imitrex, however this headache was not consistent with his usual migraine headache. Approximately one hour later he developed numbness in his right hand, this slowly progressed proximally over the course of an hour, his right foot also felt numb. Admits to not feeling right and some dizziness through out the day. Denies weakness, visual changes, difficulty with balance or ambulation, nausea, vomitting, or chest pain. Patient has felt off since his last stroke, with foggy thinking, reduced memory. Symptoms were resolved when he awoke this morning he is unsure of exactly when they resolved. In the ED he was found to have an acute kidney injury with increased creatinine, patient was given fluids and is resolving. MRI today did not find acute infarction or abnormality, previous cerebellar infarct was identified. Patient has been placed on plavix and statin during this visit. Past Med Surg Social Fam HX - Past Medical History Medical history: arthritis, CVA, hyperlipidemia, hypertension, migraine, other Additional medical history: connective tissue disorder Psychiatric history: anxiety - Past Surgical History Surgical History: other Additional surgical history: foot surgery, eye correction x5, B knee scopes, bhavani fundoplication, open heart - Social History Smoking Status: Never smoker Smokeless Tobacco Status: No Alcohol use: none Drug use: none - Family History Father Hx Family Cancer: Yes (Brain Cancer) Medications and Allergies HYDROcodone/Acet 10/325 mg [[place] 10-325 mg] 1 tab PO Q8H PRN 02/16/17 [History] Lidocaine 1 patch TP DAILY 02/16/17 [History] Losartan Potassium [Cozaar] 50 mg PO DAILY 02/16/17 [History] Metoprolol [Lopressor] 25 mg PO BID 02/16/17 [History] Meloxicam 7.5 mg PO DAILY 10/08/17 [History] Aspirin Enteric Coated [Aspirin EC] 325 mg PO DAILY #30 tablet. 10/09/17 [Rx] Atorvastatin [Lipitor] 40 mg PO HS #30 tablet 10/09/17 [Rx] 3 Allergy/AdvReac Type Severity Reaction Status Date / Time No Known Allergies Allergy Verified 10/08/17 15:33 All Systems: The remainder of the systems were reviewed and are negative Review of Systems: Review of systems is negative. Physical Examination - Vital Signs Vital Signs: Initial Vital Signs Temp Pulse Resp BP Pulse Ox 98.6 F 86 15 96/70 94 10/21/17 17:31 10/21/17 17:31 10/21/17 17:31 10/21/17 17:31 10/21/17 17:31 - Constitutional General appearance: comfortable - Neurologic Sensorimotor examination: intact Detailed motor examination: grossly full strength in all extremities Motor examination - right side: 5/5: deltoids, biceps, triceps, wrist flexion, wrist extension, claims counsel, hip flexors, tibialis Anterior, quadriceps, toe extension (EHL), plantarflexion Motor examination - left side: 5/5: deltoids, biceps, triceps, wrist flexion, wrist extension, hip flexors, claims counsel, quadriceps, tibialis Anterior, toe extension (EHL), plantarflexion Detailed sensory examination: intact, light touch, pain Reflex and gait examination: other (Normal gait for this patient, he has had reconstructive ankle surgery and has a mild limp. Down going plantar reflexes. Reflexes are symmetric bilaterally) Reflexes: Biceps: 2+, Triceps: 2+, Brachioradialis: 2+, Patella: 2+, Achilles: 2 + Mental Status Examination: awake, alert, oriented to person, oriented to place, oriented to time, follows commands appropriately, answers questions appropriately, no agnosia, no aphasia, no aproxia Cranial nerve examination: PERRL, EOMI, visual lares intact, sensory to face intact, mastication intact, no facial asymmetry is present, no dysarthria, hearing is intact symmetrically, soft palate elevates bilaterally upon phonation , flexes SCM and trapezius muscles symmetrically with full power Cranial Nerve Exam: tongue protrudes: Left Cerebellar examination: no dysmetria, performs finger to nose and heel to vazquez symmetrically without ataxia (Patient does exhibit difficulty with rapid alternating movements of the left upper extremity which is slowed, requiring more effort compared to the right) Results - Laboratory Findings CBC and BMP: 10/22/17 04:18 10/22/17 04:18 Abnormal lab findings: Abnormal lab results PT 12.5 Seconds (9.4-12.1) H 10/22/17 04:18 Chloride 111 mEq/L (98-107) H 10/22/17 04:18 HDL Cholesterol 30 mg/dL (40-59) L 10/22/17 04:18 Consult Discharge Plan - Plan Referrals: Salomón Garcia DO [Primary Care Provider] -
--- NOTE | 2017-10-22 15:01 | Discharge Summary ---
<Ayla Feledr - Last Filed: 10/22/17 16:49> - NOTES TO OUTPATIENT PROVIDER Notes to Outpatient Provider: Mr. Chavarria presented to the ED due to new onset of right sided numbness and new headache. He has history of CVA and migraines. Neurology was consulted. He had a CT of the head and MRI of the brain and there were no acute findings. He is asked to avoid moloxicam as it can worsen headaches. Additionally, he is asked to stay hydrated as dehydration can provoke headaches. Additionally, he was prescribed plavix upon last discharge but he is adamant that he is not taking it. I would advise Dr. Ludwig, his neurologist to look into this, if he needs to be on the plavix or not. Orders not resulted at time of discharge: Pending orders 10/22/17 04:00 Urinalysis reflex Microscopic [URIN] AM 0400 Date of Encounter: 10/22/17 Time of Encounter: 03:00 - Discharge Diagnosis (1) Sensory deficit, right Priority: Primary Status: Resolved (2) Facet arthritis of lumbar region Priority: Secondary Status: Chronic (3) History of CVA (cerebrovascular accident) Priority: Secondary Status: Acute (4) FREDDY (acute kidney injury) Priority: Secondary Status: Acute (5) HTN (hypertension) Priority: Secondary Status: Chronic Qualifiers: Hypertension type: essential hypertension Qualified Code(s): I10 - Essential (primary) hypertension (6) HLD (hyperlipidemia) Priority: Secondary Status: Chronic Qualifiers: Hyperlipidemia type: mixed hyperlipidemia Qualified Code(s): E78.2 - Mixed hyperlipidemia (7) Migraine Priority: Secondary Status: Chronic Qualifiers: Migraine type: without aura Status migrainosus presence: without status migrainosus Intractability: not intractable Qualified Code(s): G43.009 - Migraine without aura, not intractable, without status migrainosus (8) DVT prophylaxis Priority: Secondary Status: Resolved Hospital course: Mr. Chavarria presented to the ED complaining of new onset of right sided numbness and a new headache yesterday. He has history of Umer Danlos and a recent CVA diagnosis two weeks ago. Neurology was consulted. At presentation he denied nausea, emesis, headache, and changes in speech, loss of speech, denied changes of bowel or bladder or other focal changes. His creatinine was elevated at 1.33 and received 1 liter of normal saline. He had a CT at the ED and there were no acute intracranial abnormalities noted. There was a recommendation to do an MRI. He had an MRI this morning and there were no acute abnormalities noted. The MRI today had no changes from his previous MRI. His symptoms have resolved. It is likely he had a headache due to dehydration. His urine was very dark in color and with the elevated creatinine it is likely it was related to dehydration. Additionally he is using two different analgesics and molixicam can worsen the headaches. He is advised to stop the moloxicam. Additionally, he was prescribed plavix upon last discharge but he is adamant that he is not taking it. I would advise Dr. Ludwig, his neurologist to look into this, if he needs to be on the plavix or not. Discharge discussed with: patient - Time Spent with Patient Total time spent providing and/or coordinating discharge services: - Discharge Medications Home Medications: HYDROcodone/Acet 10/325 mg [[place] 10-325 mg] 1 tab PO Q8H PRN 02/16/17 [History] Lidocaine 1 patch TP DAILY 02/16/17 [History] Losartan Potassium [Cozaar] 50 mg PO DAILY 02/16/17 [History] Metoprolol [Lopressor] 25 mg PO BID 02/16/17 [History] Aspirin Enteric Coated [Aspirin EC] 325 mg PO DAILY #30 tablet. 10/09/17 [Rx] Atorvastatin [Lipitor] 40 mg PO HS #30 tablet 10/09/17 [Rx] Allergies/Adverse Reactions: 3 Allergy/AdvReac Type Severity Reaction Status Date / Time No Known Allergies Allergy Verified 10/08/17 15:33 Date of admission: 10/21/17 20:45 Primary care physician: Salomón Garcia DO Consults: 10/21/17 22:24 Consult to Neurology [CONS] Routine Consulting Provider: [facility] Reason for Consult: CVA vs TIA, Migraine Headaches Call Completed: No Consult to Physical Therapy [CONS] Routine Comment: Evaluate, develop and implement POC Reason for Consult: CVA vs TIA. Please evaluate, treat, and determine rehab needs. Thanks. Does patient have active BEDREST order?: No Is patient medically & hemodynamically stable?: Yes Patient assessed for mobility or mobilized this visit?: No Consult to Cigarette Packing Machine Operator [CONS] Routine Reason for SW Consult: Stroke, Discharge Planning Discharging clinician: Ayla Felder Anticipated date of discharge: 10/22/17 - Constitutional Vitals: Temp Pulse Resp BP Pulse Ox 98.5 F 71 16 139/93 92 10/22/17 11:15 10/22/17 11:15 10/22/17 11:15 10/22/17 11:15 10/22/17 11:15 General appearance: Present: cooperative, A&O X 3, pleasant, no acute distress, answers questions appropriately - Head Head exam: Present: atraumatic, normocephalic - Eye Eye exam: Present: EOMI, sclera anicteric. Absent: nystagmus, PERRL - ENT ENT exam: Present: mucous membranes moist - Neck Neck exam general surgery: Present: full ROM, trachea midline - Respiratory Respiratory exam: Present: CTAB. Absent: rales, stridor, wheezes - Cardiovascular Cardiovascular exam: Present: RRR. Absent: clicks, gallop, JVD - GI/Abdominal GI/Abdominal exam: Present: normal bowel sounds, soft. Absent: firm, rigid - Extremities Exam Extremities exam: Present: warm. Absent: calf tenderness, pedal edema, tenderness - Neurological Exam Neurological exam: Present: alert, oriented X3. Absent: motor sensory deficit, no focal deficits, facial droop, speech deficit - Psychiatric Psychiatric exam: Present: normal affect, normal mood - Skin Skin exam: Present: dry, intact, warm. Absent: erythema - Patient Status Disposition: Home, Self-Care Functional capacity at discharge: independent ambulation Overall status at discharge: patient is progressing back to baseline - Discharge Instructions Follow Up With: Salomón Garcia DO [Primary Care Provider] - (CALL TOMORROW TO MAKE APPT FOR 1 WEEK AFTER DISCHARGE) Alex Ludwig MD [Partnered Physician] - (CALL TO MAKE APPT FOR 2 WEEKS AFTER DISCHARGE) - Diet and Activity Activity: increase activity as tolerated Diet: regular diet - VTE Documentation of Mechanical Device: Intermittent pneumatic compression device <Mckenna Hodge - Last Filed: 10/22/17 19:04> Orders not resulted at time of discharge: Pending orders 10/22/17 04:00 Urinalysis reflex Microscopic [URIN] AM 0400 Date of Encounter: 10/22/17 - Discharge Diagnosis (1) Facet arthritis of lumbar region Status: Chronic (2) Sensory deficit, right Status: Resolved (3) History of CVA (cerebrovascular accident) Status: Acute (4) FREDDY (acute kidney injury) Status: Acute (5) HTN (hypertension) Status: Chronic Qualifiers: Hypertension type: essential hypertension Qualified Code(s): I10 - Essential (primary) hypertension (6) HLD (hyperlipidemia) Status: Chronic Qualifiers: Hyperlipidemia type: mixed hyperlipidemia Qualified Code(s): E78.2 - Mixed hyperlipidemia (7) Migraine Status: Chronic Qualifiers: Migraine type: without aura Status migrainosus presence: without status migrainosus Intractability: not intractable Qualified Code(s): G43.009 - Migraine without aura, not intractable, without status migrainosus (8) DVT prophylaxis Status: Resolved Hospital course: Mr. Chavarria is a 42 year old male - Time Spent with Patient Total time spent providing and/or coordinating discharge services: Date of admission: 10/21/17 20:45 Primary care physician: Salomón Garcia DO Consults: 10/21/17 22:24 Consult to Neurology [CONS] Routine Consulting Provider: [facility] Reason for Consult: CVA vs TIA, Migraine Headaches Call Completed: No Consult to Physical Therapy [CONS] Routine Comment: Evaluate, develop and implement POC Reason for Consult: CVA vs TIA. Please evaluate, treat, and determine rehab needs. Thanks. Does patient have active BEDREST order?: No Is patient medically & hemodynamically stable?: Yes Patient assessed for mobility or mobilized this visit?: No Consult to Cigarette Packing Machine Operator [CONS] Routine Reason for SW Consult: Stroke, Discharge Planning - Constitutional Vitals: Temp Pulse Resp BP Pulse Ox 98.5 F 85 16 140/94 95 10/22/17 16:18 10/22/17 16:18 10/22/17 16:18 10/22/17 16:18 10/22/17 16:18 - Attending Attestation Patient was seen and examined. I agree with the discharge summary as dictated above by the resident physician. Discharge plans and recommendations were made under my direct supervision.
[2017-10-22 16:20] VITALS: BP 140/94
--- NOTE | 2017-10-22 17:56 | Electrocardiograph Report ---
[address] [address] Test Date: 2017-10-21 Pat Name: Nate Chavarria Department: 104 Room: 2NE29 Gender: M Executive Account Manager: EKP : [id number] Requested By: Js Isabel Order Number: [id number] Reading MD: Agustin Ventura Measurements Intervals [place] Rate: 83 P: 10 [place]: 164 QRS: 17 QRSD: 92 T: 53 QT: 346 QTc: 385 Interpretive Statements SINUS RHYTHM MODERATE VOLTAGE CRITERIA FOR LVH, CONSIDER NORMAL VARIANT Electronically Signed On 10-22-2017 17:54:53 EDT by Agustin Ventura
== END 2017-10-22 19:35 | disposition home or self-care (01) ==
LOC: EMEROO 17:21 → 2NENU 17:21
PROVIDERS: ADMIT Family Medicine; ATTEND Family Medicine

== ENCOUNTER 2022-01-13 03:52 | Observation (INO) ==
[2022-01-13] MEDS ORDERED: Iopamidol - 370 500 ML MLS IVP ONE (04:07)
[2022-01-13 04:22] LABS: Hematocrit 47.4 % (37.5-50.1); Mean Corpuscular HGB Conc 33.8 g/dL (31.6-35.5); Mean Corpuscular Hemoglobin 29.4 pg (28.0-33.3); Mean Corpuscular Volume 87.1 fL (83.0-100.0); Mean Platelet Volume 10.4 fL (9.4-12.4); Platelet Count 190 K/mcL (140-400); Red Blood Count 5.44 M/mcL (4.19-5.50); White Blood Count 9.7 K/mcL (4.3-11.1)
[2022-01-13 04:26] LABS: Prothrombin Time 11.6 Seconds (9.4-12.1)
[2022-01-13 04:28] LABS: Activated Partial Thrombo Time 33.8 Seconds (26.0-36.0)
[2022-01-13 04:40] LABS: BUN/Creatinine Ratio 17 (6-26); Blood Urea Nitrogen 19 mg/dL (6-20); Calcium 9.2 mg/dL (8.6-10.3); Carbon Dioxide 29 mEq/L (23-29); Chloride 102 mEq/L (98-107); Glucose 97 mg/dL (70-105); Osmolality,Calculated 286 (280-300); Potassium 3.7 mEq/L (3.5-5.1); Sodium 137 mEq/L (136-145)
[2022-01-13 04:42] LABS: Troponin I < 0.03 ng/mL (< 0.04)
[2022-01-13] MEDS ORDERED: Prochlorperazine 10 MG/2 ML VIAL IVP ONE (04:43)
[2022-01-13] MEDS ORDERED: Ketorolac 30 MG/ML VIAL IVP ONE (04:43)
[2022-01-13] MEDS ORDERED: 0.9 % Sodium Chloride 1,000 ML IVC ONE (04:43)
[2022-01-13] MEDS ORDERED: Acetaminophen 325 MG TABLET PO PRN (05:23)
[2022-01-13] MEDS ORDERED: Ondansetron ODT 4 MG TAB.RAPDIS SL PRN (05:23)
[2022-01-13] MEDS ORDERED: Naloxone 0.4 MG/ML INJ IVP PRN (05:23)
[2022-01-13] MEDS ORDERED: Melatonin 3 MG TABLET PO PRN (05:23)
[2022-01-13] MEDS ORDERED: SUMAtriptan 6 MG/0.5 ML SQ PRN (06:11)
[2022-01-13 06:24] LABS: Thyroid Stimulating Hormone 7.487 mcIU/mL (0.340-5.600)
[2022-01-13] MEDS ORDERED: Aspirin Enteric Coated 325 MG Tablet PO SCH (09:00)
[2022-01-13 09:19] LABS: Triiodothyronine (T3) Total 136 ng/dL (87-178)
[2022-01-13 09:44] LABS: Folate 6.1 ng/mL (3.0-16.0)
[2022-01-13 09:58] LABS: Estimated Average Glucose 114 mg/dl; Hemoglobin A1C 5.6 %
[2022-01-13 14:10] VITALS: BP 119/83; PULSE 68; TEMP 97.4; O2SAT 97
[2022-01-13] MEDS ORDERED: Metoprolol XL (24 HR) Succ 50 MG TAB.ER.24H PO SCH (18:00)
== END 2022-01-13 17:30 | disposition left against medical advice (07) ==
LOC: EMEROOARM 03:52 → 3BNU 03:52 → SUATTDRO 05:21 → 3BNU 06:00
PROVIDERS: ADMIT Internal Medicine; ATTEND Internal Medicine